=== PATIENT | female | born 1965 | race Two or more races ===

== ENCOUNTER 2021-04-11 12:58 | Emergency (ER) | payer OTHER, SELFPAY ==
[2021-04-11 14:09] VITALS: BP 155/87; PULSE 81; RESP 19; TEMP 36.1; BMI 32.8
--- NOTE | 2021-04-11 15:00 | ED.NECK ---
HPI - Neck Pain/Injury General Chief Complaint: Neck Pain/Injury Stated Complaint: neck pain Time Seen by Provider: 04/11/21 14:45 Source: patient Mode of arrival: ambulatory Limitations: no limitations History of Present Illness HPI Narrative: Patient is a 55-year-old female past medical history of diabetes, fibromyalgia, arthritis, and cervical spine fusion 5 years ago at [facility]. She presents emergency department today for evaluation of neck pain and stiffness with the onset of 3 days ago. Pain is constant to the posterior and right lateral neck and into her upper shoulders. She denies any precipitating injury. She took ibuprofen yesterday with relief from her pain, today however it is not helping. Denies fevers, chills, headache, vision changes, dizziness or lightheadedness, numbness or tingling of the arms, chest pain, palpitations, shortness of breath and deep breathing, nausea, vomiting. Denies any recent illness, sick exposure, or COVID-19 exposure. MD complaint: neck pain Onset (ago): day(s) Radiation: right lateral, right shoulder and upper back Severity: severe Severity scale (1-10): 8 Quality: spasming Duration: constant Relieving factors: none Exacerbating factors: movement of neck Context: unknown Associated symptoms: none Treatments prior to arrival: ibuprofen Related Data Previous Rx's Medication Instructions Recorded dicyclomine 20 mg tablet 20 mg PO QID #120 tab 10/09/20 fenofibrate nanocrystallized 145 145 mg PO DAILY #30 tab 11/03/20 mg tablet tizanidine 2 mg capsule 2 mg PO TID PRN 7 Days #14 cap 04/11/21 Allergies Allergy/AdvReac Type Severity Reaction Status Date / Time acetaminophen [From PERCOCET] Allergy Intermediate VOMITING Verified 04/11/21 14:46 oxycodone [From PERCOCET] Allergy Intermediate VOMITING Verified 04/11/21 14:46 trazodone [TRAZODONE] Allergy Unknown UNKNOWN, Verified 04/11/21 14:46 jaw locking Review of Systems Review of Systems: Constitutional: No weight loss, fever, chills, weakness or fatigue. HEENT: No visual loss, blurred vision, double vision or yellow sclera. No hearing loss, sneezing, congestion, runny nose or sore throat. Skin: No rash or itching. Cardiovascular: No chest pain, chest pressure or chest discomfort. No palpitations or pedal edema. Respiratory: No shortness of breath, cough or sputum production. Gastrointestinal: No anorexia, nausea, vomiting or diarrhea. No abdominal pain or blood in stool. Genitourinary: No burning micturition. No urinary frequency or incontinence. Neurologic: No headache, dizziness, syncope, unilateral weakness, ataxia, numbness or tingling in the extremities. No change in bowel or bladder control. Musculoskeletal:+ neck and shoulder pain. back pain, joint pain or stiffness. Hematologic: No bleeding or bruising. Lymphatics: No enlarged lymph nodes. Psychiatric:No depression or anxiety. Endocrine: No polyuria or polydipsia. [facility] Past Medical History Attestation statement: The following information was validated with the patient. Source: old records reviewed Medical History Arthritis Diabetes Fibromyalgia High cholesterol Surgical History H/O cervical spine surgery Hx of lumbosacral spine surgery Social History Social History Advance Directives: No Advance Directives Information Provided: No Patient : No Physical Exam Vital Signs: Vital Signs: Last Vital Signs Temp 97 F 04/11/21 14:09 Pulse 77 04/11/21 16:04 Resp 16 04/11/21 16:04 BP 116/69 04/11/21 16:04 Pulse Ox 98 04/11/21 16:04 BMI result Body Mass Index 32.8 Vital signs have been reviewed and appeared to be correct. Blood pressure elevated initially /87 likely due to pain, improved to 116/69.? Heart rate normal.? Respiration rate normal. Temperature normal.? Oxygen saturation normal. Appearance: Alert.?Oriented to person, place and time. No acute distress.?Normal affect. Eyes: Pupils equal, round and reactive to light.? ENT: Pharynx normal.?? Neck: Normal inspection.? Neck supple.??Active range of motion limited with rotation forward flexion posterior extension due to pain. Palpable tenderness to the right trapezius muscle, with increased muscle tone. CVS: Heart sounds normal. Normal heart rate and rhythm.? Pulses normal.?? Respiratory: No respiratory distress.? Lung sounds clear to auscultation bilaterally?? Abdomen: Soft and non-tender. Normoactive bowel sounds. No pulsatile mass.?? Skin: Skin warm and dry.? Normal skin color.? Normal skin turgor.?? Extremities: No lower extremity edema.? Full active range of motion to bilateral arms and shoulders Neuro: Bilateral arms strength 5-5, equal, no weakness, palpable radial pulses. Moves all extremities spontaneously. Sensation intact bilaterally. No focal neuro deficits. Course Course Course Narrative: Patient is a 55-year-old female being evaluated for neck pain. She is well appearing, nontoxic. Given she has had no precipitating under neck injury in more fall will defer radiographic imaging at this time. No recent infection, fevers, chills or meningismus to suggest meningitis. Physical exam was consistent with cervical and trapezius strain. As she is not driving herself home today, she will be treated with Toradol IM and Valium PO. Disposition pending results Reevaluation(s) Reevaluation #1: Patient reports improvement of her pain, currently is a 5/10 and has increased range of motion to the neck. She continues to be well-appearing. Her blood pressure has improved 116/69. Patient to be discharged home with the plan for NSAID, topical heat/cold therapy, gentle stretching exercise, and muscle relaxer. Discussed reasons to return to the emergency department, an outpatient follow-up with her primary care provider. Patient agrees plan of care. Time: 16:00 [facility] - Neck Pain/Injury Medical Records Attestation: I reviewed the patient's medical records. Discharge Plan Discharge Clinical Impression: Strain of neck muscle, Strain of cervical portion of right trapezius muscle Patient Disposition: Home, Self-Care Instructions: Cervical Strain (ED) Additional Instructions: Your pain is most likely due to a strain of the muscles in her neck and shoulder. May use ibuprofen as needed for pain, you can apply topical ice pack or heating pad, and should perform gentle stretching exercises of the neck shoulders and upper arms. In addition you had been given a new prescription for Tizanadine, this is a muscle relaxer, you should not drive or operate machinery while taking this medication, it may make you drowsy. Please follow-up with your primary care provider 1-3 days. In addition you may return to the emergency department for any new or worsening concerns or symptoms. Prescriptions: New tizanidine 2 mg capsule 2 mg PO TID PRN (Reason: muscle spasticity) 7 Days Qty: 14 RF: 0 No Action dicyclomine 20 mg tablet 20 mg PO QID Qty: 120 RF: 3 fenofibrate nanocrystallized 145 mg tablet 145 mg PO DAILY Qty: 30 RF: 3
[2021-04-11] MEDS: Ketorolac Tromethamine 30 MG/ML VIAL IM (15:13)
[2021-04-11] MEDS: diazePAM 2 MG TABLET PO (15:13)
[2021-04-11 16:04] VITALS: BP 116/69; PULSE 77; RESP 16; O2SAT 98
== END 2021-04-11 16:41 | disposition home or self-care (01) ==
PROVIDERS: Emergency Provider Internal Medicine; PCP Internal Medicine
DX: S16.1XXA Strain of muscle, fascia and tendon at neck level, initial encounter (principal); X58.XXXA Exposure to other specified factors, initial encounter; E11.9 Type 2 diabetes mellitus without complications; Y93.9 Activity, unspecified; Y92.9 Unspecified place or not applicable; Y99.9 Unspecified external cause status
CPT/HCPCS: 96372; 99284; J1885

== ENCOUNTER 2024-03-08 12:42 | Outpatient (AMB) | payer OTHER, SELFPAY ==
--- OUTSIDE RECORDS SUMMARY | 2024-03-08 12:44 | XMS_ITS | Data Portability ---
Author Organization [facility] Address [address] [place] [id number] Care Team Providers Care Security Guard Dispatcher Name Role Phone [facility] Referring Provider [phone] Assessment Encounter Date Assessment Date Assessment LastModified by Organization Details LastModified Time 08/15/2022 08/15/2022 As noted, we sameer e called to see this patient regarding concerns of sore throat. Evaluation in the field was performed by my field scout colleague, as noted above, I provided real-time direction and supervision for this visit. The evaluation revealed rapid strep +. Besides the throat, exam is reassuring except for tachycardia; ms lou did not take her atenolol today due to pain with swallowing. Exam otherwise reassuring in that she does not appear volume down; she was taking robust PO as recently as yesterday, only today has been difficult. Appears to be straightforward strep throat. Tachycardia raises some concern for early sepsis but hx of not taking atenolol and otherwise asymptomatic. Impression: acute strep pharyngitis Plan: 1. PCN V 500mg bid x 10 days sent to her pharmacy 2. encouraged salt gargles 3. toradol IM on site for acute pain 4. Given well appearance and vitals besides tachycardia, low concern for sepsis, but told to call us vs ER if she becomes lightheaded, is still unable to take PO, palpitations, or worsening condition. Disposition: We discussed the diagnostic uncertainty of home visits and the risk associated with this. In this case, the patient and I felt this to be an acceptable and reasonable amount of risk given the benefit of avoiding an ED visit. We discussed the need to seek care urgently/emergentl y in the setting of any new or worsening serious symptoms, especially as noted above. [email or web address] Not available 08/15/2022 16:21:01 Plan of Treatment Reminders Order Date Submit Date Provider Last Modified By Organization Details Last Modified Time Details Appointments None recorded. Lab None recorded. Referral None recorded. Procedures None recorded. Surgeries None recorded. Imaging None recorded. Medication Orders penicillin V potassium [address] [facility]armacy #[id number], [address] [facility], [place], [address], 3 11:55:38 Patient TargetsNo targets recorded. Patient InstructionsNo instructions recorded. Reason for Referral None Reported. Medical Equipment None Reported. Allergies Allergen ID Allergen Name Allergen Category Reaction Reaction Severity Criticality Documentation Date Start Date Code Code System Note Provider Name and Address Organization Details Recorded Time 8031 trazodone medicatio n Not available Not available Not available 01/17/2024 12094 RxNorm Not Available [facility] - production 4 03:41:30 Medications Name Sig Start Date Stop Date Status Note LastModified by Organization Details LastModified Time amoxicillin 500 mg capsule TAKE 1 CAPSULE BY MOUTH THREE TIMES A DAY UNTIL FINISHED active Not Available Not Available No t Available atorvastatin 40 mg tablet TAKE 1 TABLET BY MOUTH EVERY DAY active Not Available Not Available No t Available nabumetone 750 mg tablet TAKE 1 TABLET BY MOUTH EVERY DAY NEEDED FOR PAIN active Not Available Not Available No t Available tizanidine 4 mg tablet TAKE 1 TABLET BY MOUTH EVERY 8 HOURS NEEDED (NECK PAIN). active Not Available Not Available No t Available benzonatate 200 mg capsule TAKE ONE CAPSULE BY MOUTH THREE TIMES DAILY NEEDED FOR COUGH active Not Available Not Available No t Available penicillin V potassium 500 mg tablet TAKE 1 TABLET BY MOUTH TWICE A DAY DIRECTED FOR 10 DAYS active Not Available Not Available No t Available acetaminophen 500 mg tablet TAKE 1 TABLET BY MOUTH EVERY 4-6 NEEDED FOR FEVER OR PAIN active Not Available Not Available No t Available lorazepam 0.5 mg tablet TAKE 1 TABLET BY MOUTH EVERY MORNING NEEDED FOR ANXIETY active Not Available Not Available No t Available lorazepam 2 mg tablet TAKE 1 TABLET BY MOUTH EVERYDAY AT BEDTIME active Not Available Not Available No t Available omeprazole 20 mg capsule,delaye d release TAKE 1 CAPSULE BY MOUTH EVERY DAY active Not Available Not Available No t Available lorazepam 1 mg tablet TAKE 1 TABLET BY MOUTH EVERYDAY AT BEDTIME active Not Available Not Available No t Available atenolol 50 mg tablet TAKE 1 TABLET BY MOUTH EVERY DAY active Not Available Not Available No t Available duloxetine 60 mg capsule,delaye d release TAKE 1 CAPSULE BY MOUTH TWICE A DAY active Not Available Not Available No t Available Quick[employer] At-Home COVID-19 Test kit TEST DIRECTED TODAY active Not Available Not Available No t Available Vitals Date Recorded Respiratory rate Heart rate Oxygen saturation Oxygen saturation in Arterial blood by Pulse oximetry Body temperature Systolic blood pressure Diastolic blood pressure Provider Name and Address Organization Details Last Updated DateTime 3 18 /min 125 /min 96 % 96 % 99.9 [degF] 114 mm[Hg] 76 mm[Hg] Not Available [facility] - production 3 11:47:32 Social History None recorded. Functional Status None recorded. Mental Status None recorded. Family History Nothing Reported. Medical History No medical history recorded. Gynecological HistoryNo gynecological history recorded. Obstetrics History GPAL:G 0 P 0 0 0 0 Past Encounters Encounter ID Performer Location Encounter Start Date Encounter Closed Date Diagnosis/Indication Diagnosis SNOMED-CT Code Diagnosis ICD10 Code [id number] FABIAN DIAZ MD [facility] - [facility] [address] [place] [id number] 08/15/2022 11:47:27 08/16/2022 18:57:52 Acute pharyngitis 819398189 J02.9 Health Concerns Section Related Observation LastModified by Organization Detai ls LastModified Time None Recorded Concern Status LastModified by Organization Details LastModified Time None Recorded Advance Directives Directive None Recorded Payers Encounter Date Sequence Insurance Name Policy Number Policy Alfaro Covered Member ID Aflaro Member ID Guarantor Name 08/15/2022 1 [facility] - DOS ON OR AFTER 2022 - DUAL ELIGIBLE - HALF-WAY OPTIONS AND ONE CARE (MEDICARE REPLACEMENT/ADV ANTAGE - HMO) Christina Lou [id number] Christina Lou Notes Date Note Type Note Provider Name and Address Organization Details Recorded Time 08/15/2022 text/html [facility] Nursing Assessment: Reason For Request: congestion and fever Chief Complaints: Fever/Chills, Pain, Shortness of Breath/Dyspnea PMH: Diabetes, Hypertension Allergies: Trazodone Comments: Member calling in to place a referral, identified via /name. Member who is not feeling well, she feels feverish +chills, headache, body aches, sore throat, slight cough and sob. Denies n/v/d. Member would like to be evaluated. .................. .................. .................. .................. .................. .................. .................. ............... Waste Water Or Water Plant Operator Note From Lotus Ruggiero: Sent to evaluate pt c/o fever/chills, body aches, slight cough, sore throat, and HILL. Upon arrival, found pt seated in armchair in living room- pt appears to feel unwell. Pt is awake and alert, airway open and patent, breathing regular. In full sentences, pt states that yesterday she started feeling symptoms listed above. Today she has worsened. Pt endorses fever of 100.4 this AM, took tylenol and believes it's come down some. Obtained vitals, pt found to be tachycardic in 120's. Pt reports that due to pain upon swallowing, did not take her regular atenolol this AM. Pt reports fluid intake today due to discomfort, but has had one cup of tea so far today. Upon interview, pt admits that her son was diagnosed with strep x1 week ago and she had contact with him. Pt denies cp, sob, abd pain, n/v/d, drooling, inability to swallow, palpitations, or sinus congestion. +fever, +chills, +myalgia, +hill, +sore throat, +slight non productive cough. Skin hot, pink, dry. Throat does not appear red/no exudate appreciated but appears +swollen. Trachea midline, no JVD. Equal chest rise and fall, breath sounds are clear, equal, bilateral. Rapid covid and rapid flu are both negative. Pt + for strep A. Image of + test uploaded to [facility]. Advised pt to increase fluid intake as tolerated, to try taking teaspoon of honey q 3-4 hours and to regularly gargle with warm salt water, pt reports being very familiar with gargling with salt water. Also advised pt to continue with tylenol q6 prn. Consulted [facility] who will send script of PCN to pt's pharmacy and reiterated the symptomatic treatment with salt water. [facility] advised pt to take her atenolol anjali. [facility] orders 15mg of IM toradol, which was administered without incident. [facility] discussed red flags to be shared with pt to trigger ER visit. Relayed information to pt who verbalized understanding. There were no further questions or concerns at this time. .................. .................. .................. .................. .................. .................. .................. ............... Disposition: Fulfilled FABIAN DIAZ MD [address] [facility],[address], [place], [phone], [employer] 08/15/2022 16:21:19 OBGyn Episode No OBEpisode recorded.
[2024-03-08 13:01] VITALS: BMI 32.4
--- NOTE | 2024-03-08 13:01 | A.SPINEOV_ITS ---
Vital Signs 03/08/24 13:01 Height 5 ft Weight 166 lb BMI 32.4 Intake Visit Reasons: LBP Intake Note: Ms. Lou is here today c/o Low back pain. Supervisor Home Energy Consultant Required: No Allergies acetaminophen [From PERCOCET] Allergy (Intermediate, Verified 03/08/24 13:01) VOMITING oxycodone [From PERCOCET] Allergy (Intermediate, Verified 03/08/24 13:01) VOMITING trazodone [TRAZODONE] Allergy (Unknown, Verified 03/08/24 13:01) UNKNOWN, jaw locking Physical Exam Vital Signs: BMI result Body Mass Index 32.4 Assessment & Plan Assessment & Plan (1) Back pain: Code(s): M54.9 - Dorsalgia, unspecified Category: Medical Plan Mrs Lou came in for a 2nd opinion on her thoracic spine today. She is a patient known to Dr. Melgar at [facility]. She has had an extensive cervical fusion history, from what looks like C3-C6. Her last surgery was in 2021. Over the last 3-4 months she has developed a midthoracic pain which radiates around from her ribs out toward her chest. It can get aggravated with deep breathing. It is also aggravated with most activities. She takes nabumetone in Motrin to try to help. It does give her some relief. She tried physical therapy for awhile but that seemed to only make it worse. She was seen in Dr. Chin office and a thoracic MRI was ordered. This showed just mild degenerative changes. She is recommended to continue on with conservative treatment. She came in today to see us for a 2nd opinion. No myelopathic complaints. PMH: She is diabetic but her A1c is well controlled without medications, history of osteoarthritis, fibromyalgia, multiple fusions of the cervical spine, 3 surgeries in her lower back including an anterior lumbar interbody fusion. Carpal tunnel in both hands, rotator cuff right shoulder., hypertension, high cholesterol Social hx: She does not smoke, drink use any recreational drugs Medications: Atenolol, omeprazole, atorvastatin, lorazepam, trazodone, Topamax, Cymbalta Allergies: Percocet Physical exam: She is awake alert oriented no acute distress, she has full strength of bilateral upper and lower extremities, normal gait, reflexes 3+ and symmetric at the biceps triceps, patella and Achilles. There is no Guardado's sign. Imaging review: Thoracic MRI done at [facility] shows just very mild degenerative changes in the thoracic spine, no foraminal or central canal stenosis. Impression: 58-year-old female with midthoracic pain, she has a history of an anterior cervical fusion from C3-C6, the last in 2021. Her MRI is otherwise showing just mild changes and I am not sure how to explain her pain based on the imaging. I agree with that this is likely some kind of muscular phenomenon. It could be related to the affect of the fusion in her neck, causing her referred pain down into her upper thoracic and midthoracic areas. Could be causing muscular tightness due to the lack of range of motion in her neck. Nonetheless, there is nothing surgical on our imaging. She was recommended just to continue with conservative treatments. Thank you for allowing us to care for your patient. The total time spent with this visit with this patient was 45 minutes reviewing history, physical exam, thoracic imaging review, and implementation of treatment plan or further diagnostic testing Graeme Buckley MD,PhD [facility] Coding Level of Care Code New Pt Level 4 (41941) Diagnoses Back pain M54.9
== END 2024-03-08 14:17 | disposition home or self-care (01) ==
PROVIDERS: PCP Internal Medicine; Visit Provider Physician Assistant
DX: M54.9 Dorsalgia, unspecified (principal)
CPT/HCPCS: 99204

== ENCOUNTER → 2024-03-08 12:42 | Outpatient (BNVA) | payer OTHER, SELFPAY | PROVIDERS: PCP Internal Medicine; Visit Provider Physician Assistant | DX: M54.9 Dorsalgia, unspecified (principal) | CPT/HCPCS: 99202 ==

== ENCOUNTER 2024-03-24 09:38 | Emergency (ER) | payer OTHER, SELFPAY ==
--- NOTE | ~2024-03-24 | XR_ITS ---
CLINICAL HISTORY: cough 2 view chest x-ray. Comparison: CR - CHEST 2 VIEWS - 12/06/17 09:32 EDT CR - CHEST 2 VIEWS - 11/29/17 11:18 EDT Findings: Normal lung volumes. Lungs are clear. No pneumothorax or pleural effusion. Heart size normal. No passive venous congestion. No midline shift or tracheal deviation. No acute fracture. Post ACDF cervical vertebra. Impression: 1. No acute cardiopulmonary disease. This document has been electronically signed by: Kike Salvador MD on 03/24/2024 10:21:01
--- OUTSIDE RECORDS SUMMARY | 2024-03-24 09:41 | XMS_ITS | Data Portability ---
Author Organization [facility] [place] Address [address] [place] [phone] Care Team Providers Care Compliance Consultant Name Role Phone [facility] Referring Provider Assessment Encounter Date Assessment Date Assessment LastModified by Organization Details LastModified Time 08/15/2022 08/15/2022 As noted, we sameer e called to see this patient regarding concerns of sore throat. Evaluation in the field was performed by my power cleaner operator colleague, as noted above, I provided real-time [...] V potassium 500 mg tablet 2022 023 [facility]/Pharmacy #[id number], [address] [facility], [place], [address], 3 11:55:38 Patient TargetsNo targets recorded. Patient InstructionsNo instructions recorded. Reason for Referral None Reported. Medical Equipment None Reported. Allergies Allergen ID Allergen Name Allergen Category Reaction Reaction Severity Criticality Documentation Date Start Date Code Code System Note Provider Name and Address Organization Details Recorded Time 8031 trazodone medicatio n Not available Not available Not available 01/17/2024 67891 RxNorm Not Available [facility] - production 4 [...] Diagnosis/Indication Diagnosis SNOMED-CT Code Diagnosis ICD10 Code [id number] FABIAN DIAZ MD Main - [facility] [address] [place] [phone] 08/15/2022 11:47:27 08/16/2022 18:57:52 Acute pharyngitis [id number] J02.9 Health Concerns Section Related Observation LastModified by Organization Detai ls LastModified Time None Recorded Concern Status LastModified by Organization Details LastModified Time None Recorded Advance Directives Directive None Recorded Payers Encounter Date Sequence Insurance Name Policy Number Policy Alfaro Covered Member ID Alfaro Member ID Guarantor Name 08/15/2022 1 [facility] - DOS ON OR AFTER 2022 - DUAL ELIGIBLE - CUSTODIAL OPTIONS AND ONE CARE (MEDICARE REPLACEMENT/ADV ANTAGE - HMO) Christina Lou [id number] Christina Lou Notes Date Note Type Note [...] .................. .................. .................. .................. .................. .................. ............... Water Quality Tester Note From Lotus Ruggiero: Sent to evaluate [...] to continue with tylenol q6 prn. Consulted [facility] who will send script of PCN to pt's pharmacy and reiterated the symptomatic treatment with salt water. [facility] advised pt to take her atenolol anjali. [facility] orders 15mg of IM toradol, which was administered without incident. [facility] discussed red flags to be shared with pt to trigger ER visit. Relayed information to pt who verbalized understanding. There were no further questions or concerns at this time. .................. .................. .................. .................. .................. .................. .................. ............... Disposition: Fulfilled FABIAN DIAZ MD [address] [facility],[address], [place], [address], [employer] 08/15/2022 16:21:19 OBGyn Episode No OBEpisode recorded.
[2024-03-24 09:45] VITALS: BP 114/83; PULSE 75; RESP 18; TEMP 36.6; O2SAT 98; BMI 32.4
[2024-03-24 10:43] LABS: IDNOW Serial# 08D9AD1C; Strep A Nucleic Acid Negative (Negative)
[2024-03-24] MEDS: Acetaminophen 325 MG TABLET 975 MG PO (11:07)
--- NOTE | 2024-03-24 11:09 | ED_ITS ---
HPI - URI/Sore Throat General Chief Complaint: Upper Respiratory Symptoms Stated Complaint: cough Time Seen by Provider: 03/24/24 10:35 Source: patient and RN notes reviewed Mode of arrival: ambulatory Limitations: no limitations History of Present Illness ED Provider: Ada Pineda PA-C HPI Narrative: This is a 58-year-old female, with type 2 diabetes, fibromyalgia, arthritis, C- spine fusion, who presents emergency department with ongoing productive cough, subjective fevers, sore throat, congestion body aches for the last week. Patient does report chest wall pain only with coughing. She denies any shortness for breath. She has been taking pxuo-dlk-qulsqom cold medications without any relief. Denies taking any medications today. She denies any abdominal pain, nausea, vomiting or diarrhea. No urinary symptoms. Denies any known sick contacts. She is a nonsmoker. No other complaints or concerns at this time. MD elicited complaint: fever (Subjective), cough, sore throat and nasal congestion Severity: moderate Able to tolerate fluids by mouth: Yes Exacerbating factors: nothing Relieving factors: OTC cold medicine Associated symptoms: fever (Subjective), nasal congestion, sore throat and cough Treatments prior to arrival: none Related Data Previous Rx's ?Medication ?Instructions ?Recorded dicyclomine 20 mg tablet 20 mg PO QID #120 tabs 10/09/20 fenofibrate nanocrystallized 145 145 mg PO DAILY #30 tabs 11/03/20 mg tablet tizanidine 2 mg capsule 2 mg PO TID PRN muscle spasticity 04/11/21 7 days #14 caps acetaminophen 500 mg tablet 1,000 mg (2 x 500 mg) PO Q8H PRN 03/24/24 (Tylenol Extra Strength) fever or pain #30 tabs benzonatate 100 mg capsule 100 mg PO TID PRN cough #14 caps 03/24/24 ibuprofen 600 mg tablet 600 mg PO Q6H PRN pain or fever 03/24/24 #30 tabs Allergies Allergy/AdvReac Type Severity Reaction Status Date / Time acetaminophen [From PERCOCET] Allergy Intermediate VOMITING Verified 03/24/24 09:46 oxycodone [From PERCOCET] Allergy Intermediate VOMITING Verified 03/24/24 09:46 trazodone [TRAZODONE] Allergy Unknown UNKNOWN, Verified 03/24/24 09:46 jaw locking Review of Systems Review of Systems: Yes all other systems are reviewed and are negative Constitutional: Constitutional: Reports as per HPI [facility] Past Medical History Medical History Arthritis Diabetes Fibromyalgia High cholesterol Surgical History H/O cervical spine surgery Hx of lumbosacral spine surgery Social History Social History Advance Directives: No Advance Directives Information Provided: No Do you have a plan to hurt others: No Plan Physical Exam Vital Signs: Vital Signs: Last Vital Signs Temp 97.9 F 03/24/24 09:45 Pulse 75 03/24/24 09:45 Resp 18 03/24/24 09:45 BP 114/83 03/24/24 09:45 Pulse Ox 98 03/24/24 09:45 O2 Del Method Room Air 03/24/24 09:45 BMI result Body Mass Index 32.4 Const: General: cooperative, comfortable and no acute distress Orientation/consciousness: patient oriented x3 Limitations: no limitations HEENT: Head: Yes normal to inspection, Yes normocephalic and Yes atraumatic Ears: hearing grossly normal bilaterally and TM's normal bilaterally General nose exam: Normal external nose present Face and sinus: Yes normal facial exam Mouth: Normal oral and palatal mucosa present, oropharynx normal and moist mucous membranes Throat: Yes posterior oropharynx normal Eyes: General: appearance normal, both eyes and all related structures Eyelids: Yes eyelids normal Conjunctivae: conjunctivae normal Sclerae: sclerae normal Pupils: Equal, round and reactive pupils present EOM: EOMs intact bilaterally Neck: Neck: Yes normal visual inspection, Yes full ROM and Yes no lymphadenopathy Lymphatic: no lymphadenopathy noted Chest: Chest palpation & inspection: normal inspection of the chest Resp: Effort & Inspection: normal respiratory effort and able to speak in complete sentences Auscultation: clear to auscultation bilaterally, no crackles, no rales, no rhonchi and no wheezes Cardio: Rate: regular rate Rhythm: regular rhythm Heart sounds: S1 normal heart sound present and S2 normal heart sound present GI: Inspection: Yes normal to inspection Skin: General skin exam: no rashes or lesions noted Trauma: no lacerations or abrasions Wounds: no wounds Neuro: General: patient oriented x3 and moves all extremities Cranial nerves: Yes Equal, round and reactive pupils present Extrem: General: Yes normal to inspection Right upper extremity: normal to inspection Left upper extremity: normal to inspection Right lower extremity: normal to inspection Left lower extremity: normal to inspection Course Reevaluation(s) Reevaluation #1: Chest x-ray negative. Viral swabs negative. Patient's symptoms likely viral in nature. Discussed this finding with patient. She has been sick for 5 days therefore will treat conservatively with ibuprofen, Tylenol, and Tessalon Perles. She will follow-up with the primary care physician. Vital signs stable. She is feeling well, given strict return precautions, patient stable for discharge. Time: 12:28 Medications Administered Discontinued Medications Generic Name Dose Route Start Last Admin Trade Name Freq PRN Reason Stop Dose Admin Acetaminophen 975 mg 03/24/24 10:57 03/24/24 11:07 Acetaminophen 325 Mg Tablet PO 03/24/24 10:58 975 mg ONCE ONE Administration Medical Decision Making Medical Decision Making [facility] Narrative: This is a 58-year-old female, with a history of type 2 diabetes, who presents emergency department with complaints of congestion, sore throat, productive cough, chest wall pain, and congestion for the last week. On arrival, vital signs within normal limits. She is speaking in full sentences under no acute distress. Lungs are clear to auscultation bilaterally. Normal physical examination. X-ray as well as viral swabs were collected. Differential diagnoses include viral URI, flu, RSV, COVID, strep, pneumonia. Will medicate patient with Tylenol 1 g p.o. Differential Diagnosis Differential Diagnoses: The differential diagnosis associated with the presentation includes See above Lab Data [facility] Lab Attestation statement: I reviewed the patient's lab results. Viral swabs Labs: Lab Results 03/24/24 Range/Units 10:26 Influenza Type A (PCR) NEGATIVE (Negative) Influenza Type B (PCR) NEGATIVE (Negative) RSV RNA Qual (PCR) NEGATIVE (Negative) SARS-CoV-2 RNA (RT-PCR) NEGATIVE (Negative) S. pyogenes GrpA AKI Negative (Negative) Radiology Impression Discussion of test interpretation with radiology: I have reviewed the radiologist's reading. Radiologist Impression: Comparison: CR - CHEST 2 VIEWS - 12/06/17 09:32 EDT CR - CHEST 2 VIEWS - 11/29/17 11:18 EDT Findings: Normal lung volumes. Lungs are clear. No pneumothorax or pleural effusion. Heart size normal. No passive venous congestion. No midline shift or tracheal deviation. No acute fracture. Post ACDF cervical vertebra. Impression: 1. No acute cardiopulmonary disease. This document has been electronically signed by: Kike Salvador MD on 03/24/2024 10:21:01 Dictated By: Kike Salvador MD Discharge Plan Discharge Clinical Impression: Upper respiratory infection Patient Disposition: Home, Self-Care Instructions: Upper Respiratory Infection (ED) Additional Instructions: You were seen in the emergency department due to cough. Your workup today was reassuring. You likely have a virus causing you to have the symptoms. You tested negative for COVID, flu, RSV, and strep throat. Your chest x-ray does not show a pneumonia. Please continue drinking plenty of fluids get plenty of rest. Alternate between ibuprofen and Tylenol as needed for pain and fevers. Take Tessalon as needed for cough. Follow-up with your primary care physician next week to ensure that your symptoms are improving. If your symptoms worsened,Follow up with your primary care provider. Return to the emergency department immediately?if your symptoms?were to worsen or if you were to develop any shortness of breath, difficulty breathing, chest pain, dizziness, lightheadedness, back pain, abdominal pain, fever, chills, or any other symptoms. Prescriptions: New benzonatate 100 mg capsule 100 mg PO TID PRN (Reason: cough) Qty: 14 0RF ibuprofen 600 mg tablet 600 mg PO Q6H PRN (Reason: pain or fever) Qty: 30 0RF acetaminophen [Tylenol Extra Strength] 500 mg tablet 1,000 mg PO Q8H PRN (Reason: fever or pain) Qty: 30 0RF No Action dicyclomine 20 mg tablet 20 mg PO QID Qty: 120 3RF fenofibrate nanocrystallized 145 mg tablet 145 mg PO DAILY Qty: 30 3RF tizanidine 2 mg capsule 2 mg PO TID PRN (Reason: muscle spasticity) 7 Days Qty: 14 0RF Print Language: Greek
[2024-03-24 11:19] LABS: Influenza A PCR NEGATIVE (Negative); Influenza B PCR NEGATIVE (Negative); Resp Syncy Virus RNA Qual PCR NEGATIVE (Negative); SARS COV2 PCR INHOUSE NEGATIVE (Negative)
[2024-03-24 13:01] VITALS: BP 114/83; PULSE 75; RESP 18; TEMP 36.6; O2SAT 98
== END 2024-03-24 13:02 | disposition home or self-care (01) ==
PROVIDERS: Emergency Provider Emergency Medicine
DX: J06.9 Acute upper respiratory infection, unspecified (principal); R05.9 Cough, unspecified; Z03.818 Encounter for observation for suspected exposure to other biological agents ruled out
CPT/HCPCS: 0241U; 71046; 87651; 99283

== ENCOUNTER → 2024-03-24 10:05 | Outpatient (BNV) | payer OTHER, SELFPAY | PROVIDERS: Emergency Provider Emergency Medicine; Visit Provider Radiology Diagnostic Radiology | DX: R05.9 Cough, unspecified (principal) | CPT/HCPCS: 71046 ==

== ENCOUNTER 2024-08-17 19:14 | Emergency (ER) | payer OTHER, SELFPAY ==
--- NOTE | ~2024-08-17 | CT_ITS ---
CLINICAL HISTORY: posterior neck pain CT cervical spine without contrast Comparison: None Findings: Straightening of the cervical lordosis. Osteopenia. Multilevel spondylosis with osteophytosis, uncovertebral hypertrophy, facet arthropathy and degenerative disc disease. Anterior cervical discectomy and fusion changes noted at C3-C6 with bony fusion. Diffuse spinal canal narrowing, for example moderate at C5-C6 with severe bilateral foraminal stenoses, left worse than right. Minimal superior endplate height loss at C7, chronic appearing. No acute fracture. No cervical fluid collections or masses. No consolidation or effusion at the lung apices. IMPRESSION: No acute findings. Additional findings as described. This document has been electronically signed by: Sean Morris MD on 08/17/2024 20:26:37
--- NOTE | ~2024-08-17 | CT_ITS ---
CLINICAL HISTORY: posterior headache CT head without contrast Comparison: None Findings: Scattered subcortical and periventricular hypoattenuation, likely in keeping with chronic small vessel ischemic disease. Parenchymal volume loss with compensatory prominence of the ventricles and CSF spaces. No acute territorial infarction, intracranial hemorrhage, midline shift or hydrocephalus. Empty sella is demonstrated, nonspecific. There is no sinus or mastoid fluid. The orbits are within normal limits. There is no acute fracture. IMPRESSION: 1. No acute intracranial abnormality. 2. Additional findings as described. This document has been electronically signed by: Sean Morris MD on 08/17/2024 20:32:18
[2024-08-17 19:16] VITALS: BP 120/73; PULSE 76; RESP 18; TEMP 36.6; O2SAT 98; BMI 30.9
--- NOTE | 2024-08-17 19:23 | ED.GENADULT ---
HPI - General Adult General Chief complaint: Headache Stated complaint: headache/lower neck pain Time Seen by Provider: 08/17/24 20:31 Source: patient and old records reviewed Mode of arrival: ambulatory Limitations: no limitations History of Present Illness ED Provider: FÁTIMA INGRAM narrative: 58 yo female with PMH of DM, HTN, HLD, migraines not on thinners who has had posterior headaches and neck pains for 1 month. No fevers, no trauma, no thinners. No associated n/v/d. She states it does not respond to motrin. She is under a lot of stress at home. She states this has been stronger and longer than a migraine MD complaint: migraines Onset (ago): month(s) (1) Location: head Radiation: neck Severity: moderate Quality: aching Pain Consistency: constant Relieving factors: none Exacerbating factors: movement Associated symptoms: denies other symptoms Treatments prior to arrival: NSAID Related Data Previous Rx's ?Medication ?Instructions ?Recorded dicyclomine 20 mg tablet 20 mg PO QID #120 tabs 10/09/20 fenofibrate nanocrystallized 145 145 mg PO DAILY #30 tabs 11/03/20 mg tablet tizanidine 2 mg capsule 2 mg PO TID PRN muscle spasticity 04/11/21 7 days #14 caps acetaminophen 500 mg tablet 1,000 mg (2 x 500 mg) PO Q8H PRN 03/24/24 (Tylenol Extra Strength) fever or pain #30 tabs benzonatate 100 mg capsule 100 mg PO TID PRN cough #14 caps 03/24/24 ibuprofen 600 mg tablet 600 mg PO Q6H PRN pain or fever 03/24/24 #30 tabs [id number]-ewjyawmlodqjo-nbvbjbaw 1 cap PO Q8H PRN pain #14 caps 08/17/24 50 mg-300 mg-40 mg capsule (Fioricet) cyclobenzaprine 10 mg tablet 10 mg PO TID PRN muscle spasm #20 08/17/24 tabs Allergies Allergy/AdvReac Type Severity Reaction Status Date / Time acetaminophen [From PERCOCET] Allergy Intermediate VOMITING Verified 08/17/24 19:18 oxycodone [From PERCOCET] Allergy Intermediate VOMITING Verified 08/17/24 19:18 trazodone [TRAZODONE] Allergy Unknown UNKNOWN, Verified 08/17/24 19:18 jaw locking Review of Systems Review of Systems: Constitutional : No Fever, No Chills, No Fatigue ENT/Mouth : No sore throat, No Rhinorrhea Eyes: No Eye Pain, No Swelling, No Redness Cardiovascular : No Chest Pain, No SOB, No Dyspnea on Exertion Respiratory : No Cough, No Sputum Gastrointestinal : No Nausea, No Vomiting, No Diarrhea, No abdominal Pain Genitourinary : No Dysuria, No Urinary Frequency, No Hematuria, Musculoskeletal : No joint pain, No Myalgias, No Joint Swelling, pos neck pain Skin : No Skin Lesions, No rash Neuro : No Weakness, No Numbness, No Dizziness, positive Headache Psych : No Anxiety/Panic, No Depression All other systems reviewed and are negative [facility] Past Medical History Attestation statement: The following information was validated with the patient. Source: old records reviewed Medical History Fibromyalgia High cholesterol Diabetes Arthritis Surgical History Hx of lumbosacral spine surgery H/O cervical spine surgery Social History Social History Use of substances other than those prescribed or required for medical reasons: No Advance Directives: No Advance Directives Information Provided: No Do you have a plan to hurt others: No Plan Physical Exam ED Vital Signs: Vital Signs - 24 hr 08/17/24 19:16 08/17/24 20:27 Temperature 97.9 F 98.2 F Pulse Rate 76 78 Respiratory Rate 18 16 Blood Pressure 120/73 124/74 Pulse Oximetry 98 97 Oxygen Delivery Method Room Air Room Air BMI result Body Mass Index 30.9 Appearance: Alert. Oriented X3. No acute distress. Eyes: Pupils equal, round and reactive to light. ENT: Pharynx normal. normal TMs, no temporal ttp Neck: Normal inspection. Neck supple. CVS: Normal heart rate and rhythm. Pulses normal. Respiratory: No respiratory distress. Breath sounds normal. Abdomen: Soft and nontender. Skin: Skin warm and dry. Normal skin color. Normal skin turgor. Extremities: No lower extremity edema. No calf ttp Neuro: Oriented X 3. No motor deficit. No sensory deficit. CN2-12 intact Course Course Course Narrative: RMHarry; 58-year-old female history of migraine presents to ED for right posterior head and neck pain for 1 month that worsened in the past 3 days. Patient states pain on range of motion. Patient denies any photophobia, nausea, vomiting, blurry vision, slurred speech, facial droop or paralysis of extremities. NIH score is 0. Imaging labs ordered Medications Administered Discontinued Medications Generic Name Dose Route Start Last Admin Trade Name Arely PRN Reason Stop Dose Admin Acetaminophen/Butalbital/Caffeine 1 tab 08/17/24 20:51 08/17/24 21:06 Butalb/Acetamin/Caff 50/325/40 Tablet PO 08/17/24 20:52 1 tab ONCE ONE Administration Cyclobenzaprine HCl 10 mg 08/17/24 20:51 08/17/24 21:06 Cyclobenzaprine Hcl 10 Mg Tablet PO 08/17/24 20:52 10 mg ONCE ONE Administration Medical Decision Making Medical Decision Making [facility] Narrative: 58 yo female with PMH of DM, HTN, HLD, migraines not on thinners who comes in with 1 month of headache but no associated neuro symptoms, no trauma and no fevers to suggest [facility] infection. She has no neuro deficitis. At this time will obtain labs, CT scan for mass and reassess. Differential Diagnosis Differential Diagnoses: The differential diagnosis associated with the presentation includes tension headache, migraine Admission/Observation Consideration of admission/observation: Escalation of care including admission/observation considered feels better, stable for DC Lab Data [facility] Lab Attestation statement: I reviewed the patient's lab results. 08/17/24 19:46 08/17/24 19:46 Labs: Lab Results 08/17/24 Range/Units 19:46 WBC 8.7 (4.8-10.8) X10*3/uL RBC 3.82 L (4.20-5.50) X10*6/uL Hgb 12.1 (12.0-16.0) g/dl Hct 34.8 L (37.0-47.0) % MCV 91.1 (80.0-98.0) fL MCH 31.7 (27.0-33.0) pg MCHC 34.8 (31.0-35.0) g/dl RDW 12.4 (11.0-16.0) % Plt Count 246 (160-400) X10*3/uL MPV 10.1 (9.4-12.3) fL Immature Gran % (Auto) 0.3 (0.0-0.4) % Neut % (Auto) 58.3 (45-73) % Lymph % (Auto) 30.9 (20-40) % [place] % (Auto) 7.2 (2-11) % Eos % (Auto) 2.7 (0-4) % Baso % (Auto) 0.6 (0-2) % Lymph # (Auto) 2.7 (1.2-4.9) X10*3/uL [place] # (Auto) 0.6 (0.1-1.2) X10*3/uL Eos # (Auto) 0.2 (0.0-0.4) X10*3/uL Baso # (Auto) 0.1 (0.0-0.2) X10*3/uL Abs Immat Gran (auto) 0.03 (0.00-0.03) X10*3/uL Absolute Neuts (auto) 5.1 (2.0-8.3) x10*3/uL Absolute Nucleated RBC 0.000 (0.0-0.012) X10*3/uL Nucleated RBC % (auto) 0.0 (0.0-0.2) /100WBC Sodium 144 (135-145) mmol/L Potassium 4.0 (3.3-5.1) mmol/L Chloride 112 H (96-108) mmol/L Carbon Dioxide 23 (22-29) mmol/L Anion Gap 13 (12-20) BUN 16 (9-16) mg/dL Creatinine 0.76 (0.5-1.4) mg/dL Estim Creat Clear Calc 70.4 Estimated GFR > 60 Random Glucose 156 H (60-115) mg/dL Calcium 9.2 (8.4-10.2) mg/dL Total Bilirubin 0.3 (0.0-1.0) mg/dL AST 21 (5-31) U/L ALT 22 (0-31) U/L Alkaline Phosphatase 80 (39-117) U/L Total Protein 7.5 (6.5-8.0) g/dL Albumin 4.6 (3.5-5.0) g/dL Independent Interpretation I performed an independent interpretation of an: CT Scan (no ICH) Radiology Impression Discussion of test interpretation with radiology: I have reviewed the radiologist's reading. External Record Review External record reviewed: Outpatient record Prescription Management I considered prescription management with: Pain Medication Discharge Plan Discharge Clinical Impression: Tension headache Patient Disposition: Home, Self-Care Instructions: Tension Headache (ED) Additional Instructions: labs reassuring CT scan no mass rest and stay hydrated - return for worsening symptoms or concerns, fevers or any other concerns. Prescriptions: New cyclobenzaprine 10 mg tablet 10 mg PO TID PRN (Reason: muscle spasm) Qty: 20 0RF [id number]-uajjkaybgpanf-gblo [Fioricet] 50-300-40 mg capsule 1 cap PO Q8H PRN (Reason: pain) Qty: 14 0RF No Action dicyclomine 20 mg tablet 20 mg PO QID Qty: 120 3RF fenofibrate nanocrystallized 145 mg tablet 145 mg PO DAILY Qty: 30 3RF tizanidine 2 mg capsule 2 mg PO TID PRN (Reason: muscle spasticity) 7 Days Qty: 14 0RF benzonatate 100 mg capsule 100 mg PO TID PRN (Reason: cough) Qty: 14 0RF ibuprofen 600 mg tablet 600 mg PO Q6H PRN (Reason: pain or fever) Qty: 30 0RF acetaminophen [Tylenol Extra Strength] 500 mg tablet 1,000 mg PO Q8H PRN (Reason: fever or pain) Qty: 30 0RF Interventions: ED Discharge Assessment Last Done: 08/17/24 21:41 Discharge Date/Time: 08/17/24 21:43 Print Language: Wallisian
[2024-08-17 19:51] LABS: MANUAL DIFF FLAG NO
[2024-08-17 19:53] LABS: Basophils Absolute Auto 0.1 X10*3/uL (0.0-0.2); Basophils Percent Auto 0.6 % (0-2); Eosinophils Absolute Auto 0.2 X10*3/uL (0.0-0.4); Eosinophils Percent Auto 2.7 % (0-4); Hematocrit 34.8 % (37.0-47.0); Hemoglobin 12.1 g/dl (12.0-16.0); Imm Gran Abs Auto 0.03 X10*3/uL (0.00-0.03); Imm Gran Pct Auto 0.3 % (0.0-0.4); Lymphocytes Absolute Auto 2.7 X10*3/uL (1.2-4.9); Lymphocytes Percent Auto 30.9 % (20-40); Mean Corpuscular HGB Conc 34.8 g/dl (31.0-35.0); Mean Corpuscular Hemoglobin 31.7 pg (27.0-33.0); Mean Corpuscular Volume 91.1 fL (80.0-98.0); Mean Platelet Volume 10.1 fL (9.4-12.3); Monocytes Absolute Auto 0.6 X10*3/uL (0.1-1.2); Monocytes Percent Auto 7.2 % (2-11); Neutrophils Absolute Auto 5.1 x10*3/uL (2.0-8.3); Neutrophils Percent Auto 58.3 % (45-73); Platelet Count 246 X10*3/uL (160-400); Red Blood Count 3.82 X10*6/uL (4.20-5.50); Red Cell Distribution Width 12.4 % (11.0-16.0); White Blood Count 8.7 X10*3/uL (4.8-10.8)
--- NOTE | 2024-08-17 19:57 | PC.NURSE ---
Pt appeared to be having absent seizure, unresponsive, moving head and blinking eyes but not answering questions. 2.5mg IV diazepam ordered and administered.
[2024-08-17 20:07] LABS: Alanine Aminotransferase 22 U/L (0-31); Albumin Level 4.6 g/dL (3.5-5.0); Alkaline Phosphatase 80 U/L (39-117); Anion Gap 13 (12-20); Aspartate Amino Transferase 21 U/L (5-31); Bilirubin Total 0.3 mg/dL (0.0-1.0); Blood Urea Nitrogen 16 mg/dL (9-16); Calcium 9.2 mg/dL (8.4-10.2); Carbon Dioxide 23 mmol/L (22-29); Chloride 112 mmol/L (96-108); Creatinine Clr Calc Pharmacy 70.4; Estimated Glomerular Filt Rate > 60; Glucose Random 156 mg/dL (60-115); Sodium 144 mmol/L (135-145); Total Protein 7.5 g/dL (6.5-8.0)
[2024-08-17 20:27] VITALS: BP 124/74; PULSE 78; RESP 16; TEMP 36.8; O2SAT 97
[2024-08-17] MEDS: Butalb/Acetamin/Caff 50/325/40 TABLET 1 TAB PO (21:06)
[2024-08-17] MEDS: Cyclobenzaprine HCl 10 MG TABLET PO (21:06)
[2024-08-17 21:41] VITALS: BP 124/74; PULSE 78; RESP 16; TEMP 36.8; O2SAT 97
== END 2024-08-17 21:43 | disposition home or self-care (01) ==
PROVIDERS: Physician Assistant; Emergency Provider Emergency Medicine; PCP Internal Medicine
DX: G44.209 Tension-type headache, unspecified, not intractable (principal); E11.9 Type 2 diabetes mellitus without complications; I10 Essential (primary) hypertension; E78.5 Hyperlipidemia, unspecified
CPT/HCPCS: 36415; 70450; 72125; 80053; 85025; 99284

== ENCOUNTER → 2024-08-17 19:20 | Outpatient (BNV) | payer OTHER, SELFPAY | PROVIDERS: Emergency Provider Emergency Medicine; PCP Internal Medicine; Visit Provider Radiology Diagnostic Radiology | DX: M54.2 Cervicalgia (principal); R51.9 Headache, unspecified | CPT/HCPCS: 70450; 72125 ==

== ENCOUNTER 2024-08-21 08:58 | Outpatient (AMB) | payer OTHER, SELFPAY ==
[2024-08-21 09:08] VITALS: BP 110/72; BMI 30.7
--- NOTE | 2024-08-21 09:08 | MHC.PC.OV ---
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: No Accompanied by: Self / Same As Patient Allergies acetaminophen [From PERCOCET] Allergy (Intermediate, Verified 08/21/24 09:10) VOMITING oxycodone [From PERCOCET] Allergy (Intermediate, Verified 08/21/24 09:10) VOMITING trazodone [TRAZODONE] Allergy (Unknown, Verified 08/21/24 09:10) UNKNOWN, jaw locking Medication List - Last Reconciled 08/21/24 by Sarahi Lucio MD atenolol 50 mg PO DAILY atorvastatin 40 mg PO DAILY buspirone 7.5 mg PO BID duloxetine (Cymbalta) 60 mg PO BID ibuprofen 600 mg PO Q6H PRN lorazepam 1 mg PO QAM lorazepam 2 mg PO BEDTIME omeprazole 20 mg PO DAILY topiramate 100 mg PO BID trazodone 150 mg PO BEDTIME Tobacco use date assessed: 08/21/24 Dental Screening Dental Screen Date: 08/21/24 Did you have a dental visit in the last 12 months?: Yes Did you have a dental problem in the last 6 months where you did not have access to dental care?: No Was dental information given to patient?: Patient has dentist HPI HPI Comments History of Present Illness Details The patient is a 58-year-old female presenting with a complex medical history requiring medication management and assessment of multiple chronic conditions. Essential hypertension is managed with atenolol, while atorvastatin is prescribed for hyperlipidemia. Her anxiety and fibromyalgia are addressed with buspirone and duloxetine, respectively, supplemented by lorazepam at night for sleep. She reports intermittent ibuprofen usage for pain symptoms. She complains of hair loss and I will refer her to Dermatology. Complains of chronic neck pain and has seen neurosurgeon which does not recommend surgical intervention as of now. Has mild major recurrent depression, anxiety and insomnia follow by Psychiatry. Has impaired glucose tolerance but denies any polyuria, polydipsia or unintentional weight loss. Has goiter. She has had extensive surgical history with multiple spinal surgeries and bilateral carpal tunnel release. Previous gastrointestinal surgery includes a laparoscopic cholecystectomy. A recent colonoscopy and endoscopy were completed without noted complications. The patient experiences persistent neck pain, occasionally exacerbated by past anesthesia incidents, which resulted in severe rigidity. Her recent laboratory data indicated elevated random glucose, prompting a recommendation for ongoing monitoring. [facility] Medical History (Updated 08/21/24 @ 09:45 by Sarahi Lucio MD) Fibromyalgia High cholesterol Arthritis Surgical History (Updated 08/21/24 @ 09:28 by Sarahi Lucio MD) History of total abdominal hysterectomy History of hemicolectomy Hx laparoscopic cholecystectomy History of carpal tunnel release of both wrists H/O rotator cuff surgery Hx of lumbosacral spine surgery H/O cervical spine surgery Family History Mother Diabetes Hypertension Osteoporosis Father Dementia Emphysema lung Family/Other Mental health disorder Social History Housing: Apartment Alcohol intake: never Patient Tobacco Use Status: Never used Tobacco e-Cigarette/Vaping Use: Never Used Second Hand Smoke Exposure: No service: No Current occupational status: disabled Cognitive needs: Yes Hearing needs: No Vision needs: Yes Questionnaire PHQ-9 Over the last 2 weeks, how often have you been bothered by any of the following problems? 1. Little interest or pleasure in doing things: several days 2. Feeling down, depressed, or hopeless: several days 3. Trouble falling or staying asleep, or sleeping too much: more than half the days 4. Feeling tired or having little energy: several days 5. Poor appetite or overeating: several days 6. Feeling bad about yourself - or that you are a failure or have let yourself or your family down: several days 7. Trouble concentrating on things, such as reading the newspaper or watching television: several days 8. Moving or speaking so slowly that other people could have noticed. Or the opposite - being so fidgety or restless that you have been moving around a lot more than usual: several days 9. Thoughts that you would be better off or of hurting yourself in some way: not at all Total score: 9 Depression Screening Interpretation: Positive Depression Screening Follow-up: Existing condition and Follow-up Visit Requested Depression Screening Done: Yes 24811 - PHQ-9 Billing: Yes Source: Developed by Drs. Dmitry Lynn, Rivka Urrutia, Lupillo Gutierrez and colleagues, with an educational raine from [employer]. Thrive Questionnaire Date Thrive assessed: 08/15/24 I am a: Patient What is your living situation today?: I have a steady place to live Within the past 12 months, did the food you bought not last and you didn't have the money to get more?: Never true Within the past 12 months, did you worry whether your food would run out before you got money to buy more?: Never true Do you have trouble paying for medicines?: No Do you have trouble getting transportation to medical appointments?: No Do you have trouble paying your heating and electricity bill?: No Do you have trouble taking care of your child, family member or friend?: No Do you have trouble with day-to-day activities such as bathing, preparing meals, shopping, managing finances, etc.?: Yes Are you currently unemployed and looking for a job?: No Are you interested in more education?: No Please select the resources that you would like help with: None Currently or been in a relationship where the following occur: No concerns reported THRIVE Score: 0 AUDIT C Alcohol Use Questionnaire (AUDIT-C) 1. How often do you have a drink containing alcohol?: Never Total Score: 0 Score Reviewed/Action Taken: No RACHELLE-7 AMB Questionnaire RACHELLE-7 Date RACHELLE - 7 assessed: 08/21/24 Feeling nervous, anxious, or on edge: 2 = More than half the days Not being able to stop or control worryin = More than half the days Worrying too much about different things: 2 = More than half the days Trouble relaxin = More than half the days Being so restless that it is hard to sit still: 2 = More than half the days Becoming easily annoyed or irritable: 1 = Several days Feeling afraid as if something awful might happen: 0 = Not at all Total RACHELLE-7 score (0-4 normal; 5-9 mild; 10-14 moderate; 15-21 severe): 11 Source: Developed by Drs. Dmitry Lynn, Rivka Urrutia, Lupillo Gtuierrez and colleagues, with an educational raine from [employer]. RACHELLE-7 Assessment Billing RACHELLE-7 Assessment Tool: RACHELLE-7 Assessment 48114 Review of Systems Const All systems reviewed & are unremarkable except as noted in HPI and below Card Denies chest pain at rest, Denies chest pain with activity, Denies edema, Denies irregular heart rhythm, Denies claudication, Denies dyspnea, Denies dyspnea on exertion, Denies orthopnea, Denies paroxysmal nocturnal dyspnea and Denies slow heart rate Resp Denies cough, Denies dyspnea and Denies dyspnea on exertion GI Denies abdominal pain, Denies change in bowel habits, Denies excessive flatus, Denies nausea and Denies vomiting Denies urinary incontinence, Denies urinary hesitancy and Denies urinary urgency Musc Denies abnormal gait, Denies atrophy, Denies deformity and Denies limited range of motion Skin/Breast Denies bleeding lesions, Denies changing lesions and Denies rash Neuro Denies abnormal gait, Denies behavioral changes and Denies lack of coordination Psych Denies behavioral changes Physical exam (Primary Care) Vital Signs: Last Vital Signs BP 110/72 08/21/24 09:08 BMI result Body Mass Index 30.7 BMI Assessment/Plan discussion: High BMI High, discussed plan: lifestyle, weight reduction, dietary and physical activity Tobacco/Smoking Status: Tobacco use Status Tobacco use date assessed 08/21/24 08/21/24 09:18 Patient Tobacco Use Status Never used Tobacco 08/21/24 09:18 e-Cigarette/Vaping Use Never Used 08/21/24 09:18 PHQ-9: PHQ-9 Score PHQ-9: Total score 9 08/21/24 09:24 Depression Screening Interpretation: Positive Depression Screening Follow-up: Existing condition and Follow-up Visit Requested Thrive Assessment: Date of Thrive Assessment Date Thrive assessed 08/15/24 08/21/24 09:18 Currently or been in a relationship where the following occur: No concerns reported Neck Neck: Yes tender Thyroid: diffusely enlarged Resp Effort & Inspection: normal respiratory effort Auscultation: clear to auscultation bilaterally Cardio Jugular venous distension: no JVD Rate: regular rate Rhythm: regular rhythm Heart sounds: S1 normal heart sound present and S2 normal heart sound present Extrem General: Yes full ROM Coding Level of Care Code Est Pt Level 4 (45195) Complex EM visit Add On G2211 Diagnoses Impaired glucose tolerance R73.02 Fibromyalgia M79.7 Hair loss L65.9 Goiter E04.9 Polyarthralgia M25.50 Essential hypertension I10 Pure hypercholesterolemia E78.00 Mild recurrent major depression F33.0 RACHELLE (generalized anxiety disorder) F41.1 Insomnia G47.00 Additional Codes RACHELLE-7 Assessment Billing - RACHELLE-7 Assessment Tool: RACHELLE-7 Assessment 35720 ([id number]) PHQ-9 - 11142 - PHQ-9 Billing: Yes ([id number]) Time Spent (min) 28 Assessment & Plan Assessment & Plan (1) Impaired glucose tolerance: Code(s): R73.02 - Impaired glucose tolerance (oral) Category: Medical (2) Fibromyalgia: Code(s): M79.7 - Fibromyalgia Category: Medical (3) Hair loss: Code(s): L65.9 - Nonscarring hair loss, unspecified Category: Medical (4) Goiter: Code(s): E04.9 - Nontoxic goiter, unspecified Category: Medical (5) Polyarthralgia: Code(s): M25.50 - Pain in unspecified joint Category: Medical (6) Essential hypertension: Code(s): I10 - Essential (primary) hypertension Category: Medical (7) Pure hypercholesterolemia: Code(s): E78.00 - Pure hypercholesterolemia, unspecified Category: Medical (8) Mild recurrent major depression: Code(s): F33.0 - Major depressive disorder, recurrent, mild Category: Medical (9) RACHELLE (generalized anxiety disorder): Code(s): F41.1 - Generalized anxiety disorder Category: Medical (10) Insomnia: Code(s): G47.00 - Insomnia, unspecified Category: Medical Plan The management of the patient's hypertension with atenolol and hyperlipidemia with atorvastatin should continue, along with her fibromyalgia and anxiety treatments using duloxetine and buspirone. Lorazepam for insomnia remains necessary, and Ibuprofen will be used cautiously for pain relief. Emphasis on thyroid function tests and monitoring random glucose levels are advised. Explore Vitamin D status and parathyroid function to assess bone health. Upcoming dermatology or rheumatology consults might be considered in accordance to her symptom persistence. Preventive care and immunization records need updating, with plans for appropriate follow-up visits outlined. Patient was informed and verbally consented to the use of an ambient scribe for clinic note documentation during this visit. During our discussion, I emphasized the importance of continued management for her complex conditions, underscoring adherence to prescribed hypertension and hyperlipidemia medications. The necessity of maintaining her regimen for fibromyalgia and anxiety was discussed, balancing lorazepam?s benefit for insomnia against the risk of dependency. Pain control with NSAIDs should be balanced with prevention of gastrointestinal discomfort and awareness of ibuprofen?s effects on renal and gastrointestinal health. I highlighted the need for follow-up thyroid assessments and pertinent thyroid ultrasound, providing anticipatory guidance on potential findings. Repeat glucose tests were advised due to elevated past results. In terms of vaccinations, pneumococcal vaccine updates were clarified, with her last tetanus documented in 2019. Follow-up arrangements for mammography are to be made. I offered reassurance on skin surveillance tours, and possible specialty referrals if further care with rheumatology or dermatology becomes necessitated. Orders: Orders Comprehensive [place]. Panel Fast Today R73.02 - Impaired glucose tolerance (oral) Thyroid Stimulating Hormone Today L65.9 - Nonscarring hair loss, unspecified Free T4 (Free Thyroxine) Today L65.9 - Nonscarring hair loss, unspecified US thyroid Today E04.9 - Nontoxic goiter, unspecified Cyclic Citrullinated Peptide Today M25.50 - Pain in unspecified joint SARAHI Reflex Titer and Pattern Today M25.50 - Pain in unspecified joint Vitamin D 25-OH Total Today E55.9 - Vitamin D deficiency, unspecified Lipid Panel Today E78.5 - Hyperlipidemia, unspecified Erythrocyte Sedimentation Rate Today M25.50 - Pain in unspecified joint Rheumatoid Factor Today M25.50 - Pain in unspecified joint C Reactive Protein Today M25.50 - Pain in unspecified joint Anti DNA DS Antibody Today M25.50 - Pain in unspecified joint Referrals Dermatology Referral L65.9 - Nonscarring hair loss, unspecified Rheumatology Referral M25.50 - Pain in unspecified joint Medications: Discontinued tizanidine Discontinued Reason: Patient no longer taking 2 mg PO TID 7 days PRN 14 caps 0RF muscle spasticity zzjxiapvai-nsvxyhygscbge-cjxr 50-300-40 mg (Fioricet) Discontinued Reason: Patient no longer taking 1 cap PO Q8H PRN 14 caps 0RF pain cyclobenzaprine Discontinued Reason: Patient no longer taking 10 mg PO TID PRN 20 tabs 0RF muscle spasm benzonatate Discontinued Reason: Patient Completed Course 100 mg PO TID PRN 14 caps 0RF cough acetaminophen (Tylenol Extra Strength) Discontinued Reason: Patient no longer taking 1,000 mg (2 x 500 mg) PO Q8H PRN 30 tabs 0RF fever or pain dicyclomine Discontinued Reason: Patient Completed Course 20 mg PO QID 120 tabs 3RF fenofibrate nanocrystallized Discontinued Reason: Patient no longer taking 145 mg PO DAILY 30 tabs 3RF Patient Instructions: - Continue taking prescribed medications as instructed. - Monitor your blood pressure regularly. - Take ibuprofen for pain relief, but be cautious of side effects. - Follow dietary advice to help manage blood sugar levels. - Schedule your thyroid function tests and ultrasound as planned. - Discuss any new or worsening symptoms with healthcare provider. - Keep follow-up appointments scheduled to monitor health status. - Maintain up-to-date vaccinations as necessary. - Stay compliant with annual screenings like mammography.
--- OUTSIDE RECORDS SUMMARY | 2024-08-21 09:41 | XMS_ITS | Encounter Summary ---
Author Organization [facility] Address [address] [place] [address] Care Team Providers Care Photograph Printer Name Role Phone Constanza Reddy MD Primary Care Prov ider Reason for Visit * Imaging (Routine) - Authorized Specialty Diagnoses / Procedures Referred By Contac t Referred To Contact Radiology Diagnoses Encounter for screening mammogram for breast cancer Procedures MG Mammo Digital Screening w Ant bilat MG Mammo Digital Screening w Ant bilConstanza Martinez MD [address] [place] [id number] Phone: tel: fax: [facility] Referral ID Status Reason Start Date Expiration Date V isits Requested Visits Authorized [id number] Authorized 01/05/2024 01/04/2025 1 1 Encounter Details Date Type Department Care Team (Latest Contact Info) Description 08/20/2024 9:28 AM EDT - 08/20/2024 11:59 PM EDT Hospital Encounter Radiology Department - [address] [address] Encounter for screening mammogram for breast cancer Discharge Disposition: Home or Self Care Social History Tobacco Use Types Packs/Day Years Used Date Smoking Tobacco: Never Smokeless Tobacco: Never Alcohol Use Standard Drinks/Week Comments No 0 (1 standard drink = 0.6 oz pur e alcohol) Housing Instability Answer Date Recorde d Are you worried that in the next 2 months you may not have stable housing? No 03/23/2024 Food Access & Nutrition Answer Date Rec orded Do you have access to a vari ety of food including fruits and vegetables? Yes 03/23/2024 Access to Healthcare Answer Date Record ed Within the last 3 months, ho w many times did you visit the emergency department for your medical care? 0 03/23/2024 Health Literacy Answer Date Recorded How often do you need to hav e someone help you when you read instructions, pamphlets, or other written material from your doctor or pharmacy? Never 03/23/2024 Caregiver: How often do you need to have someone help you when you read instructions, pamphlets, or other written material from your doctor or pharmacy? Not on file 03/23/2024 Transportation Answer Date Recorded Has the lack of transportati on kept you from meetings, work, or from getting things needed for daily living? No Has the lack of transportati on kept you from medical appointments or from getting medications? No 03/23/2024 Social Isolation Answer Date Recorded How often do you feel lonely or isolated from those around you? Sometimes 03/23/2024 Food Risk Answer Date Recorded Within the past 12 months we worried whether our food would run out before we got money to buy more. Never true 03/23/2024 Within the past 12 months th e food we bought just didn't last and we didn't have money to get more. Never true 03/23/2024 Dependent Care Answer Date Recorded Do you need help finding or paying for care for your loved ones. For example, children's ministries director or elderly care for an older adult? No 03/23/2024 Education Answer Date Recorded Do you think completing more education or training, like finishing a GED, going to college, or learning a trade, would be helpful for you? No 03/23/2024 Employment and Income Answer Date Recor ded During the last four weeks, have you been actively looking for work? No 03/23/2024 Living Situation Answer Date Recorded What is your living situation? 0 03/23/2024 Comments No Sex and Gender Information Value Date Recorded Sex Assigned at Not on file Legal Sex Female 5:42 PM EST Gender Identity Not on file Sexual Orientation Not on file documented as of this encounter Medications at Time of Discharge atenoloL (TENORMIN) 50 mg tablet Take 1 tablet (50 mg total) by mouth 1 (one) time each day. 90 tablet 1 03/07/2024 atorvastatin (LIPITOR) 40 mg tablet Take 1 tablet (40 mg total) by mouth 1 (one) time each day. 90 tablet 1 03/07/2024 DULoxetine (CYMBALTA) [address] capsule Take 1 capsule (60 mg total) by mouth. LORazepam (ATIVAN) 1 mg tablet TAKE 1 TABLET BY MOUTH EVERY MORNING ANXIETY 09/28/2022 LORazepam (ATIVAN) 2 mg tablet Take 0.5 tablets (1 mg total) by mouth. omeprazole (PriLOSEC) [address] capsule Take 1 capsule (20 mg total) by mouth 1 (one) time each day. 90 capsule 1 03/07/2024 topiramate (TOPAMAX) 100 mg tablet TAKE 1 TABLET BY MOUTH TWICE A DAY TAKE HALF HOUR [employer] MEALS 01/16/2024 traZODone (DESYREL) 150 mg tablet Take 1 tablet (150 mg total) by mouth at bedtime. 03/02/2024 documented as of this encounter Discharge Disposition Disposition Code Departure Means Destination Home or Self Care documented in this encounter Plan of Treatment Not on file documented as of this encounter Goals Goal Patient Goal Type Associated Problems Recent Progress Patient-Stated? Author PLOF General Yes Kvng Silverio, PT Note: Pt will report a 50% decrease in amount of sleep disturbances due to pain NOT MET Pt will increase trunk rotation 8deg B NOT MET Pt will increase lower trap strength to 3+/5 MET Pt will improve shoulder ER to 4/5R and 4-/5L MET LTG General Yes Kvng Silverio PT Note: Pt will not require compression trunk brace/sleeve NOT MET Pt will wake <3x/wk due to neck/mid back pain NOT MET Pt will require no assist in doing dishes or cleaning home NOT MET documented as of this encounter Procedures Procedure Name Priority Date/Time Associated Diagnosis Comments MG MAMMO DIGITAL SCREENING W ANT BILAT Routine 08/20/2024 9:40 AM EDT Encounter for screening mammogram for breast cancer documented in this encounter Results * MG Mammo Digital Screening w Ant bilat (08/20/2024 9:40 AM EDT) Anatomical Region Laterality Modality Breast Bilateral Mammography 08/20/2024 2:49 PM EDT Impressions 08/20/2024 3:02 PM EDT Benign. BI-RADS CATEGORY: 1 - NEGATIVE RECOMMENDATION: Screening bilateral mammogram is recommended in 1 year. Mammo Location: [facility], [address] [place] [address], [id number], . -------- FINAL REPORT -------- Dictated By: Shae Donnelly Dictated Date: 08/20/2024 14:49 ET Assigned Physician: Shae Donnelly Reviewed and Electronically Signed By: Shae Donnelly Signed Date: 08/20/2024 15:02 ET Workstation ID: [id number] Transcribed By: Self Edit Transcribed Date: 08/20/2024 14:53 ET Narrative 08/20/2024 3:02 PM EDT CLINICAL: 58 years old, Female, routine annual exam. COMPARISON: Mammograms dating back to 11/23/2019 most recent of 08/04/2023. ?? TECHNIQUE: Bilateral MLO and CC views were obtained digitally with 3-D mammogram (digital breast tomosynthesis). Computer-aided detection was utilized in evaluation of this exam (CAD). FINDINGS: There is no evidence of suspicious mass or architectural distortion. ??No worrisome calcifications are evident. ??There is a biopsy clip in the upper outer left breast. ??There has been no significant change from prior exam(s). ?? BREAST DENSITY: B - There are scattered areas of fibroglandular density. Procedure Note Shae Donnelly MD - 08/20/2024 CLINICAL: 58 years old, Female, routine annual exam. COMPARISON: Mammograms dating back to 11/23/2019 most recent of08/04/2023. TECHNIQUE: Bilateral MLO and CC views were obtained digitally with 3-Dmammogram (digital breast tomosynthesis). Computer-aided detection wasutilized in evaluation of this exam (CAD). FINDINGS: There is no evidence of suspicious mass or architectural distortion. Noworrisome calcifications are evident. There is a biopsy clip in the upperouter left breast. There has been no significant change from priorexam(s). BREAST DENSITY: B - There are scattered areas of fibroglandular density. IMPRESSION: Benign. BI-RADS CATEGORY: 1 - NEGATIVE RECOMMENDATION: Screening bilateral mammogram is recommended in 1 year. Mammo Location: [facility], [address] [place] [address], [id number], . -------- FINAL REPORT -------- Dictated By: Shae Donnelly Dictated Date: 08/20/2024 14:49 ET Assigned Physician: Shae Donnelly Reviewed and Electronically Signed By: Shae Donnelly Signed Date: 08/20/2024 15:02 ET Workstation ID: [id number] Transcribed By: Self Edit Transcribed Date: 08/20/2024 14:53 ET us Constanza Reddy MD IMG BI PROCEDURES Final Result documented in this encounter Visit Diagnoses Diagnosis Encounter for screening mammogram for breast cancer documented in this encounter Additional Health Concerns Assessment Noted Time PHQ-9 Depression Total Score: 7 05/30/19 25 11:27 AM EDT documented as of this encounter Care Teams Photograph Printer Relationship Specialty Start Date End Date Constanza Reddy MD [address] [place] [phone] PCP - General Internal Medicine 01/19/24 documented as of this encounter
== END 2024-08-21 09:40 | disposition home or self-care (01) ==
PROVIDERS: PCP Internal Medicine; Visit Provider Internal Medicine
DX: R73.02 Impaired glucose tolerance (oral) (principal); M79.7 Fibromyalgia; L65.9 Nonscarring hair loss, unspecified; E04.9 Nontoxic goiter, unspecified; M25.50 Pain in unspecified joint; I10 Essential (primary) hypertension; E78.00 Pure hypercholesterolemia, unspecified; F33.0 Major depressive disorder, recurrent, mild; F41.1 Generalized anxiety disorder; G47.00 Insomnia, unspecified

== ENCOUNTER 2024-08-21 08:58 | Outpatient (REF) | payer OTHER, SELFPAY ==
[2024-08-21 11:45] LABS: Rheumatoid Factor < 13.0 IU/mL (<15.0)
[2024-08-21 11:57] LABS: Alanine Aminotransferase 23 U/L (0-31); Albumin Level 4.3 g/dL (3.5-5.0); Alkaline Phosphatase 72 U/L (39-117); Anion Gap 11 (12-20); Aspartate Amino Transferase 24 U/L (5-31); Bilirubin Total 0.4 mg/dL (0.0-1.0); Blood Urea Nitrogen 13 mg/dL (9-16); C Reactive Protein 1.89 mg/dL (< or = 0.50); Calcium 8.9 mg/dL (8.4-10.2); Carbon Dioxide 25 mmol/L (22-29); Chloride 111 mmol/L (96-108); Cholesterol 89 mg/dL (<200); Estimated Glomerular Filt Rate > 60; Glucose Fasting 115 mg/dL (60-99); HDL Cholesterol 25 mg/dL (>40); LDL Cholesterol Calculated 23 mg/dL (<100); Potassium 3.7 mmol/L (3.3-5.1); Sodium 143 mmol/L (135-145); Total Protein 6.9 g/dL (6.5-8.0); Triglycerides 208 mg/dL (<150)
[2024-08-21 12:09] LABS: Erythrocyte Sedimentation Rate 16 MM/HR (0-20)
[2024-08-21 12:16] LABS: Free T4 (Free Thyroxine) 0.85 ng/dL (0.71-1.85); Thyroid Stimulating Hormone 1.38 uIU/mL (0.32-4.0); Vitamin D 25-OH Total 53.8 ng/mL (>30)
[2024-08-22 20:04] LABS: Anti DNA DS Antibody <1 IU/mL
[2024-08-23 09:58] LABS: Cyclic Citrullinated Peptide <16 UNITS
[2024-08-23 15:14] LABS: Anti Nuclear Antibody Screen NEGATIVE (NEGATIVE)
== END 2024-08-21 08:59 | disposition home or self-care (01) ==
LOC: HO.LAB 08:58
PROVIDERS: PCP Internal Medicine; Visit Provider Internal Medicine
DX: M79.7 Fibromyalgia (principal); R73.02 Impaired glucose tolerance (oral); L65.9 Nonscarring hair loss, unspecified; E04.9 Nontoxic goiter, unspecified; M25.50 Pain in unspecified joint; I10 Essential (primary) hypertension; E78.00 Pure hypercholesterolemia, unspecified; F33.0 Major depressive disorder, recurrent, mild; F41.1 Generalized anxiety disorder; G47.00 Insomnia, unspecified; E55.9 Vitamin D deficiency, unspecified; Z79.899 Other long term (current) drug therapy
CPT/HCPCS: 36415; 80053; 80061; 82306; 84439; 84443; 85652; 86038; 86140; 86200; 86225; 86431; 96127; 99212

== ENCOUNTER 2024-10-01 11:34 | Outpatient (REF) | payer OTHER, SELFPAY ==
--- NOTE | ~2024-10-01 | US_ITS ---
EXAMINATION: US THYROID HISTORY: E04.9 - Nontoxic goiter, unspecified TECHNIQUE: Real-time grayscale ultrasound imaging was performed and images were reviewed. COMPARISON: There are no prior studies available for comparison. FINDINGS: SIZE: The right thyroid lobe measures 5.0 x 1.2 x 1.4 cm. The left thyroid lobe measures 4.3 x 1.2 x 1.5 cm. The isthmus measures 3 mm. FLOW: Flow to the gland is normal. ECHOGENICITY: The echotexture of the gland is homogeneous. NODULES: No nodules are identified. US/US thyroid IMPRESSION: Unremarkable thyroid ultrasound. ACR TI-RADS Guidelines TR1 (0 points): Benign, No follow-up or biopsy required TR2 (2 points): Not Suspicious, No biopsy or follow up indicated TR3 (3 points): Mildly Suspicious, FNA if >= 2.5 cm, Follow if >= 1.5 cm TR4 (4-6 points): Moderately Suspicious, FNA if >= 1.5 cm, Follow if >= 1.0 cm TR5 (>=7 points): Highly Suspicious, FNA if >= 1.0 cm, Follow if >= 0.5 cm Electronically signed by: Dmitry Rodney MD 10/01/2024 12:46 PM EDT
--- OUTSIDE RECORDS SUMMARY | 2024-10-01 12:44 | XMS_ITS | Clinical Summary ---
Author Organization [facility], Address [address] [place] [address] Phone Care Team Providers Care Asw Specialist Name Role Phone Lesli Elizondo MD Primary Care Provider [phone] Social History Tobacco Use Types Packs/Day Years Used Date Smoking Tobacco: Never Assessed Comments Unknown Sex and Gender Information Value Date Recorded Sex Assigned at Not on file Legal Sex Female 2:26 PM EDT Gender Identity Not on file Sexual Orientation Not on file Last Filed Vital Signs Vital Sign Reading Time Taken Comments Blood Pressure 125/77 09/26/2019 11:17 AM EDT Pulse 79 09/26/2019 11:17 AM EDT Temperature 36.2 C (97.2 F) 09/26/2019 11:17 AM EDT Respiratory Rate - - Oxygen Saturation 97% 09/26/2019 11:17 AM EDT Inhaled Oxygen Concentration - - Weight 76.2 kg (168 lb) 09/26/2019 11:17 AM EDT Height 152.4 cm (5') 09/26/2019 11:17 AM EDT Body Mass Index 32.81 09/26/2019 11:17 AM EDT Plan of Treatment Health Maintenance Due Date Last Done Comments Breast Cancer Screening 1965 Hepatitis B Vaccine (1 of 3 - 19+ 3-dose series) 10/28 Colorectal Cancer Screening: Annual FOBT 2013 Colorectal Cancer Screening: Colonoscopy 2013 Colorectal Cancer Screening: Sigmoidoscopy 2013 Diabetes: Hemoglobin A1C 09/26/2019 Diabetes: Ophthalmology Exam 09/26/2019 Diabetes: Pedal Pulse Checked 09/26/2019 Diabetes: Sensory Foot Exam 09/26/2019 Diabetes: Visual Foot Exam 09/26/2019 Pneumococcal Vaccine: 50+ Ye ars (2 of 2 - PCV20 or PCV21) 02/14/2020 02/13/2019 Influenza Vaccine (#1) 2024 Pneumococcal Vaccine: Peds ( 0 to 5 Years) and At-Risk Patients (6 to 49 Years) Discontinued 02/13/2019 Insurance [facility] [place] [id number] Care Teams Asw Specialist Relationship Specialty Start Date End Date Lesli Elizondo MD [address] [place] [address] PCP - General Internal Medicine 09/25/19
--- OUTSIDE RECORDS SUMMARY | 2024-10-01 12:44 | XMS_ITS | Clinical Summary ---
Author Organization [facility] Address [address] [place] [address] Care Team Providers Care Credit Risk Officer Name Role Phone Lesli Gomez MD Primary Care Provider [phone] Social History Tobacco Use Types Packs/Day Years Used Date Smoking Tobacco: Never Assessed Sex and Gender Information Value Date Recorded Sex Assigned at Not on file Gender Identity Not on file Sexual Orientation Not on file Job Start Date Occupation Industry Not on file Not on file Not on file Plan of Treatment Health Maintenance Due Date Last Done Comments Hepatitis B Vaccines (1 of 3 - 3-dose series) 1965 Hepatitis C Screening 1964 Depression Screening 1976 Preventative Health Evaluation 1982 Cervical Cancer Screening (Pap Smear) 1985 Colon Cancer Screening (Colonoscopy) 2009 Breast Cancer Screening (Mammogram) 2014 Shingrix-Zoster Vaccine (1 o f 2) 2014 COVID-19 Vaccine (3 2023-2 5 season) 2023 05/19/2020, 04/28/2020 Influenza Vaccine (#1) 2024 DTap / Tdap / Td (2 - Td or Tdap) 02/13/2029 02/13/2019 Pneumococcal Vaccine Aged Out 02/13/2019 No long er eligible based on patient's age to complete this topic RSV Ped < 20 months Aged Out No longe r eligible based on patient's age to complete this topic Care Teams Credit Risk Officer Relationship Specialty Start Date End Date Lesli Gomez MD PCP - General Internal Medicine 09/05/19
--- OUTSIDE RECORDS SUMMARY | 2024-10-01 12:44 | XMS_ITS | Clinical Summary ---
Author Organization [facility] g Address [address] [place] [address] Phone Care Team Providers Care Power Barker Operator Name Role Phone Unavailable Primary Care Provider Unavailabl e Allergies Active Allergy Reactions Criticality Noted Date Comments Oxycodone-Acetaminophen 04/01/2015 Medications DULoxetine (CYMBALTA) [address] capsule Take 1 capsule (60 mg total) by mouth. Active LORazepam (ATIVAN) 1 mg tablet TAKE 1 TABLET BY MOUTH EVERY MORNING ANXIETY 3 Active LORazepam (ATIVAN) 2 mg tablet Take 0.5 tablets (1 mg total) by mouth. Active topiramate (TOPAMAX) 100 mg tablet TAKE 1 TABLET BY MOUTH TWICE A DAY TAKE HALF HOUR BEBORE MEALS 4 Active traZODone (DESYREL) 150 mg tablet Take 1 tablet (150 mg total) by mouth at bedtime. 4 Active atorvastatin (LIPITOR) 40 mg tablet TAKE 1 TABLET BY MOUTH 1 TIME EACH DAY. 90 tablet 1 5 Active polyethylene glycol (MIRALAX) 17 gram packet MIX 1 PACKET IN LIQUID AND TAKE BY MOUTH DAILY NEEDED FOR CONSTIPATIO N. 28 packet 5 5 Active omeprazole (PriLOSEC) [address] capsule TAKE 1 CAPSULE BY MOUTH 1 TIME EACH DAY. 90 capsule 1 5 Active atenoloL (TENORMIN) 50 mg tablet TAKE 1 TABLET BY MOUTH 1 TIME EACH DAY. 90 tablet 1 5 Active atorvastatin (LIPITOR) 40 mg tablet Take 1 tablet (40 mg total) by mouth 1 (one) time each day. 90 tablet 1 4 09/12/19 25 Discontinued atenoloL (TENORMIN) 50 mg tablet Take 1 tablet (50 mg total) by mouth 1 (one) time each day. 90 tablet 1 4 09/12/19 25 Discontinued omeprazole (PriLOSEC) [address] capsule Take 1 capsule (20 mg total) by mouth 1 (one) time each day. 90 capsule 1 4 09/12/19 25 Discontinued Active Problems Problem Noted Date Diagnosed Date Essential hypertension 02/01/2023 Assessment & Plan (03/07/2024 12:52 PM EST): At the time of this visit, the blood pressure is well controlled on atenolol 50 mg. The patient is instructed to follow a low sodium diet and to follow up in 3 months. Orders: Comprehensive metabolic panel; Future Hemoglobin A1c; Future Lipid panel with reflex to direct LDL; Future Urinalysis with reflex microscopic and culture; Future Cervical spondylosis 06/19/2021 Overview (05/25/2023): Last Assessment & Plan: Ms. Zabala is here for her 1 year follow-up after C3-4 ACDF with plating on 05/07/2021. She has no neck pain and much better mobility. She denies numbness or tingling in her hands and does not feel limited in her activity. She has no trouble turning with driving. On exam, there is no step-off, tenderness or deformity of the cervical spine. She has 2 well-healed right transverse incisions (the lower 1 from a remote C4-6 fusion and plating). Her voice is normal. Cervical rotation is 45 degrees bilaterally, strength 5/5, sensation light touch intact, gait is steady, there are no myelopathic findings. Review of the AP/lateral flexion/extension x-rays from today show the graft plate and screws to all be in good position. She is not yet solidly fused as I can still see a faint gap between the graft and endplates. There is no gross instability. The new plate at C3-4 with states that just anterior to the lip of the existing plate. Ms. Zabala is doing quite well and has no restrictions on her activity. She is welcome to see us in the future if there are any new concerns. Assessment & Plan (02/10/2024 3:51 PM EST): I think we have made as much progress as we are going to in terms of her cervical spine. She did well after her surgeries and the tingling in her hands is likely the residual. She is functional and can perform ADLs. I hope she will continue her exercise routine at home. In terms of the mid thoracic pain, she likely has degenerative changes there that may respond to localized treatment such as facet injections or use of a TENS unit. I will send her for thoracic spine MRI to see if we can direct treatment. Hemorrhoids 04/14/2021 Anemia 04/14/2021 Mixed stress and urge urinary incontinence 04/14 Abnormal uterine bleeding 04/14/2021 Migraine headache 04/14/2021 Carpal tunnel syndrome 04/14/2021 Neuroforaminal stenosis of lumbar spine 09/03/19 Overview (05/25/2023): With multiple previous lower back surgeries status post MRI July [address] Gerber. S/p lumbar fusion 09/2019 Anxiety 02/13/2019 Insomnia 02/13/2019 Diabetes mellitus type 2, un complicated ([facility] V24, [facility] V28) 08/04/2018 Assessment & Plan (03/07/2024 12:52 PM EST): Good control of diabetes on diet. Patient will continue with yearly Podiatric and Ophthomologic evaluations. We will check a hemoglobin A1c, before next visit. Patient will follow up in 3 months Orders: Comprehensive metabolic panel; Future Hemoglobin A1c; Future Lipid panel with reflex to direct LDL; Future Urinalysis with reflex microscopic and culture; Future Ambulatory referral to Nutrition Services; Future Hyperlipidemia 04/01/2015 Assessment & Plan (03/07/2024 12:52 PM EST): Given the patients cardiac risk profile, the patient requires an LDL cholesterol of less than 70. I have instructed the patient on the principles of a low cholesterol diet and the importance of regular exercise. We will continue atorvastatin 40 mg a day. Orders: Comprehensive metabolic panel; Future Hemoglobin A1c; Future Lipid panel with reflex to direct LDL; Future Urinalysis with reflex microscopic and culture; Future GERD (gastroesophageal reflux disease) 6 Depression 04/01/2015 Overview (05/25/2023): Follows with [facility] Fibromyalgia 04/01/2015 Overview (05/25/2023): [facility] Encounters Date Type Department Care Team Description 08/20/2024 9:28 AM EDT - 08/20/2024 11:59 PM EDT Hospital Encounter Radiology Department - [address] [address] Encounter for screening mammogram for breast cancer Discharge Disposition: Home or Self Care from Last 3 Months Immunizations Name Administration Dates Next Due H1N1 Inj Preservative Free 01/30/2009 Influenza Quadravalent, MDCK , 0.5ml, preservative free (Flucelvax) 6mo and older 02/04/2021,12/21/2019 Influenza trivalent, with pr eservative (Fluzone; Afluria) 6mo and older 01/26/2022,12/19/2018,03/07/2018,02/28,12/29/2015,02/12/2015,01/23/2014 ,02/19/2013,11/11/2011,05/27/2011 MMRV, measles mumps rubella and varicella live (Proquad) 4yo to less than 7yo 11/15/2007 Pfizer SARS-CoV-2 COVID-19, mRNA, LNP-S, preservative free 05/19/2020,04/28/2020 Pneumococcal conjugate 13 va lent (Prevnar 13, PCV13) 2mo and older 02/13/2019 Pneumococcal polysaccharide 23 valent (Pneumovax 23) 2yo and older 11/28/2010 TD, Adsorbed, Preservative Free 01/16/2009 Tdap Tetanus diptheria acell ular pertussis (Boostrix; Adacel) 7yo and older 02/13/2019 Zoster recombinant (Shingrix ) 19yo and older 09/02/2021,06/01/2021 Surgical History Surgery Date Site/Laterality Comments CHOLECYSTECTOMY PROCEDURE: DE LAPAROSCOPY SURG CHOLECYSTECTOMY OTHER SURGICAL HISTORY PROCEDURE: DECOMPRESS DISC RF LUMBAR; COMMENT: 2014 ROTATOR CUFF REPAIR Right PROCEDURE: HISTORICAL ROTATOR CUFF REPAIR CARPAL TUNNEL RELEASE Bilateral PROCEDURE: DE NEUROPLASTY &/TRANSPOS MEDIAN NRV CARPAL TUNNE OTHER SURGICAL HISTORY PROCEDURE: DE ARTHRODESIS POSTERIOR INTERBODY 1 NTRSPC LUMBAR; COMMENT: 09/2019 HYSTERECTOMY PROCEDURE: HISTORICAL HYSTERECTOMY NECK SURGERY PROCEDURE: HISTORICAL NECK SURGERY; COMMENT: C3-4 ACDF 05/07/[address] Gerber and C4-[address] Rosario BREAST BIOPSY Left PROCEDURE: BX BREAST; PERC NEEDLE CORE W/IMAG GUID; COMMENT: many yrs ago-benign Medical History Medical History Date Comments Hyperlipidemia DX:Hyperlipidemi a Esophageal reflux DX:Esophageal reflux Depressive disorder DX:Depressiv e disorder Palpitations DX:Palpitations; COMMENT: on atenolol Diabetes mellitus type 2 in obese 08/04/2018 DX:Diabetes mellitus type 2 in obese Chronic low back pain 09/13/2018 DX:Chronic low back pain Anxiety state DX:Anxiety state Essential hypertension DX:Essent ial hypertension Cervical spondylosis 06/19/2021 DX:Cervical spondylosis Family History Medical History Relation Name Comments Diabetes Brother 3 brothers Coronary artery disease Father Breast cancer Mother dx'd age 82 Coronary artery disease Mother dx'd age 82 Diabetes Mother dx'd age 82 Hypertension Mother dx'd age 82 Relation Name Status Comments Brother Father Alive Mother dx'd age 82 Social History Tobacco Use Types Packs/Day Years Used Date Smoking Tobacco: Never Smokeless Tobacco: Never Tobacco Cessation:Counseling Given: Not Answered Alcohol Use Standard Drinks/Week Comments No 0 [...] care for your loved ones. For example, director of early childhood education or elderly care for an older adult? [...] on file Sexual Orientation Not on file Obstetrics History Para Term AB IAB SAB Ectopic Multiple Livin g Live Births 2 2 2 2 Date Outcome GA Total Labor Labor/2nd/3rd Weight Sex Type Anes PTL Heaven A1 A5 Name Clin Term Term Last Filed Vital Signs Vital Sign Reading Time Taken Comments Blood Pressure 92/56 03/23/2024 4:07 PM EST Pulse 92 03/23/2024 4:07 PM EST Temperature 36.8 C (98.3 F) 03/23/2024 4:07 PM EST Respiratory Rate 12 03/07/2024 8:26 AM EST Oxygen Saturation 97% 03/23/2024 4:07 PM EST Inhaled Oxygen Concentration - - Weight 75.8 kg (167 lb) 03/07/2024 8:26 AM EST Height 152.4 cm (5') 03/07/2024 8:26 AM EST Body Mass Index 32.61 03/07/2024 8:26 AM EST Plan of Treatment Health Maintenance Due Date Last Done Comments Hepatitis B Vaccines (1 of 3 - 19+ 3-dose series) 10/29/1983 HIV Screening 02/27/2022 Medicare Annual Wellness Visit 02/27/2022 Diabetes: Annual Urine Albumin-Creatinine Ratio (uACR) 08/06/2023 08/05/2022 COVID-19 Vaccine ( season) 2023 02/21/2021, 05/19/2020, 04/28/2020 Pneumococcal Vaccine: 50+ Years (3 of 3 - PCV20 or PCV21) 02/14/2024 02/13/2019, 11/28/2010 Diabetes: Blood Sugar Control Test (HGBA1C) 07/18/2024 01/19/2024, 10/24/2023, 05/20/2023 Influenza Vaccine (#1) 2024 , 01/26/2022, 02/04/2021, Additional history exists Diabetes: Annual Retina Eye Exam 11/29/2024 11/30/2023, 09/10/2022 Diabetes: Annual GFR (Glomerular Filtration Rate) 01/18/2025 01/19/2024, 10/24/2023, 08/02/2023 Hypertension/CHF/CAD Annual BMP Blood Test 01/18/2025 01/19/2024, 10/24/2023, 08/02/2023 Diabetes: Annual Foot Exam 03/07/2025 03/07/2024, Social Influencers of Health Screening 03/23/2025 03/23/2024, 05/23/2023 Depression Screening 05/29/2025 05/29/2024, 05/23/19 24 Breast Cancer Screening 08/20/2026 08/21/19 25, 08/04/2023, 08/04/2023 Colorectal Cancer Screening: Colonoscopy 12/20/2027 12/19/2017 Cholesterol Screening (Lipid Panel) 10/23/2028 10/24/2023, 08/05/2022 DTaP,Tdap,and Td Vaccines (2 - Td or Tdap) 02/13/2029 02/13/2019, 01/16/2009 RSV Immunization Adult Patients (1 - 1-dose 75+ series) 10/29/2039 MMR Vaccines Aged Out 11/15/2007 No longer eligi ble based on patient's age to complete this topic Varicella Vaccines Aged Out 11/15/2007 No longer eligible based on patient's age to complete this topic Hepatitis C Screening Addressed 07/06/2018 Overri dden with the intention of not completing the topic Zoster Vaccines Completed 09/02/2021, 05/19, 11/15/2007 HIB Vaccines Aged Out No longer eligi ble based on patient's age to complete this topic HPV Vaccines Aged Out No longer eligi ble based on patient's age to complete this topic Hepatitis A Vaccines Aged Out No long er eligible based on patient's age to complete this topic IPV Vaccines Aged Out No longer eligi ble based on patient's age to complete this topic Meningococcal ACWY Vaccine Aged Out N o longer eligible based on patient's age to complete this topic Meningococcal B Vaccine Aged Out No l onger eligible based on patient's age to complete this topic RSV Immunization Patients Under 20 months Aged Out No longer eligible based on patient's age to complete this topic Goals Goal Patient Goal Type Associated Problems [...] and 4-/5L MET LTG General Yes Kvng Silverio, PT Note: Pt will not require compression trunk brace/sleeve NOT MET Pt will wake <3x/wk due to neck/mid back pain NOT MET Pt will require no assist in doing dishes or cleaning home NOT MET Procedures Procedure Name Priority Date/Time Associated Diagnosis Comments MG MAMMO DIGITAL SCREENING W FLORENTINO BILAT Routine 08/20/2024 9:40 AM EDT Encounter for screening mammogram for breast cancer HEMOGLOBIN A1C Routine 05/20/2023 HM URINE ALBUMIN CREATININE RATIO Routine 08/05/2022 LIPID PANEL Routine 08/05/2022 HM COLONOSCOPY Routine 12/19/2017 from Last 3 Months or Most Recently Relevant to Health Maintenance Results * MG Mammo Digital Screening w Florentino bilat (08/20/2024 9:40 AM EDT) Anatomical Region Laterality Modality Breast Bilateral Mammography 08/20/2024 2:49 PM EDT Impressions 08/20/2024 3:02 PM EDT Benign. BI-RADS CATEGORY: 1 - NEGATIVE RECOMMENDATION: Screening bilateral mammogram is recommended in 1 year. Mammo Location: [facility], [address] [place] [address], [id number], . -------- FINAL REPORT -------- Dictated By: Shae Donnelly Dictated Date: 08/20/2024 14:49 ET Assigned Physician: Shae Donnelly Reviewed and Electronically Signed By: Shae Donnelly Signed Date: 08/20/2024 15:02 ET Workstation ID: [id number] Transcribed By: Self Edit Transcribed Date: 08/20/2024 14:53 ET Narrative 08/20/2024 3:02 PM EDT CLINICAL: 58 years old, Female, routine annual exam. COMPARISON: Mammograms dating back to 11/23/2019 most recent of 08/04/2023. TECHNIQUE: Bilateral MLO and CC views were obtained digitally with 3-D mammogram (digital breast tomosynthesis). Computer-aided detection was utilized in evaluation of this exam (CAD). FINDINGS: There is no evidence of suspicious mass or architectural distortion. No worrisome calcifications are evident. There is a biopsy clip in the upper outer left breast. There has been no significant change from prior exam(s). BREAST DENSITY: B - There are scattered [...] is recommended in 1 year. Mammo Location: [facility], [address] [place] [address], [id number], . -------- FINAL REPORT -------- Dictated By: Shae Donnelly Dictated Date: 08/20/2024 14:49 ET Assigned Physician: Shae Donnelly Reviewed and Electronically Signed By: Shae Donnelly Signed Date: 08/20/2024 15:02 ET Workstation ID: [id number] Transcribed By: Self Edit Transcribed Date: 08/20/2024 14:53 ET us Constanza Reddy MD IMG BI PROCEDURES Final Result * Hemoglobin A1c (05/20/2023) Hemoglobin A1C 6.4 % Blood Venous blood specimen / Unknown Historical Provider LAB BLOOD ORDERABLES Cony l Result * Urine Albumin Creatinine Ratio (08/05/2022) Pathologist [facility] Urine Albumin Creatinine Ratio <12.1 [facility] Provider HEALTH MAINTENANCE Final Result * Lipid panel (08/05/2022) [facility] LDL/HDL Ratio 4 Triglycerides 256 mg/dL Cholesterol 145 mg/dL HDL 40 mg/dL LDL Cholesterol 54 mg/dL Blood Venous blood specimen / Unknown Result [facility] Provider LAB BLOOD ORDERABLES Cony l Result * Colonoscopy (12/19/2017) Pathologist [facility] Colonoscopy patient reported Anatomical Region Laterality Modality Other [facility] Provider HEALTH MAINTENANCE Final Result from Last 3 Months or Most Recently Relevant to Health Maintenance Insurance [facility] MEDICARE Member Subscriber Plan / Payer (Ef fective 2012-Present) Name:JOSELITO LOU Relation to Subscriber:Self Name:Joselito Lou Payer ID:[id number] Group ID:[id number] Type:Not on file Address: [address] [place] [address]
--- OUTSIDE RECORDS SUMMARY | 2024-10-01 12:44 | XMS_ITS | Data Portability ---
Author Organization [facility] Address [address] [place] [address] Care Team Providers Care Director Of Database Marketing Name Role Phone [facility] Referring Provider [phone] Assessment Encounter Date Assessment Date Assessment LastModified by Organization Details LastModified Time 08/15/2022 08/15/2022 As noted, we wer e called to see this patient regarding concerns of sore throat. Evaluation in the field was performed by my pet ambassador colleague, as noted above, I provided real-time [...] V potassium 500 mg tablet 2022 023 [id number], [address] [facility], [place], [address], 3 11:55:38 Patient TargetsNo targets recorded. Patient InstructionsNo instructions recorded. Reason for Referral None Reported. Medical Equipment None Reported. Allergies Allergen ID Allergen Name Allergen Category Reaction Reaction Severity Criticality Documentation Date Start Date Code Code System Note Provider Name and Address Organization Details Recorded Time 8031 trazodone medicatio n Not available Not available Not available 01/17/2024 51742 RxNorm Not Available [facility] - production 4 [...] blood by Pulse oximetry Body temperature Systolic And Diastolic Provider Name and Address Organization Details Last Updated DateTime 3 18 /min 125 /min 96 % 96 % 99.9 [degF] 114/76 mm[Hg] Not Available [facility] - production 3 11:47:32 Social History None recorded. Functional Status None recorded. Mental Status None recorded. Family History Nothing Reported. Medical History No medical history recorded. Gynecological HistoryNo gynecological history recorded. Obstetrics History GPAL:G 0 P 0 0 0 0 Past Encounters Encounter ID Performer Location Encounter Start Date Encounter Closed Date Diagnosis/Indication Diagnosis SNOMED-CT Code Diagnosis ICD10 Code Diagnosis Note [id number] FABIAN DIAZ MD [facility] [address] [place] [phone] 08/15/2022 11:47:27 08/16/2022 18:57:52 Acute pharyngitis 382417180 J02.9 Health Concerns Section Related Observation LastModified by Organization Detai ls LastModified Time None Recorded Concern Status LastModified by Organization Details LastModified Time None Recorded Advance Directives Directive None Recorded Payers Insurance Date Sequence Insurance Name Policy Number Policy Alfaro Covered Member ID Alfaro Member ID Guarantor Name 06/04/2023 1 [facility] - DOS ON OR AFTER 2022 - DUAL ELIGIBLE - [employer] OPTIONS AND ONE CARE (MEDICARE REPLACEMENT/ADV ANTAGE - HMO) Christina Lou [id number] Christina Lou Notes Date Note Type Note [...] .................. .................. .................. .................. .................. .................. ............... Outpatient Interviewing Clerk Note From Lotus Ruggiero: Sent to evaluate [...] to continue with tylenol q6 prn. Consulted [facility] who will send script of PCN to pt's pharmacy and reiterated the symptomatic treatment with salt water. [facility] advised pt to take her atenolol anjali. [facility] orders 15mg of IM toradol, which was administered without incident. [facility] discussed red flags to be shared with pt to trigger ER visit. Relayed information to pt who verbalized understanding. There were no further questions or concerns at this time. .................. .................. .................. .................. .................. .................. .................. ............... Disposition: Fulfilled FABIAN DIZA MD [address] [facility],[address], [place], [phone], [facility] [place] 08/15/2022 16:21:19 OBGyn Episode No OBEpisode recorded.
== END 2024-10-01 11:35 | disposition home or self-care (01) ==
LOC: HO.HMGCX 11:34
PROVIDERS: PCP Internal Medicine; Visit Provider Internal Medicine
DX: E04.9 Nontoxic goiter, unspecified (principal)
CPT/HCPCS: 76536

== ENCOUNTER → 2024-10-01 11:37 | Outpatient (BNV) | payer OTHER, SELFPAY | PROVIDERS: PCP Internal Medicine; Visit Provider Radiology Diagnostic Radiology | DX: E04.9 Nontoxic goiter, unspecified (principal) | CPT/HCPCS: 76536 ==

== ENCOUNTER 2024-12-10 15:52 | Emergency (ER) | payer OTHER, SELFPAY ==
--- NOTE | ~2024-12-10 | CT_ITS ---
CLINICAL HISTORY: LLQ pain, hx diverticulitis w resection CT abdomen and pelvis with contrast Comparison: None provided Findings: Hiatal hernia. Right liver lobe anterior segment blush of the enhancement 1.8 x 2 cm, axial image number 21 of 92 on initial portal venous phase imaging. Prior cholecystectomy. Right renal lower pole cortical low-attenuation lesion, 0.9 cm; renal cysts. Prior distal sigmoid colon surgical anastomosis. Mild calcified atherosclerotic disease of the abdominal aorta. Hiatal hernia. Prior rectal surgical anastomosis. Diverticulosis. The appendix is not grossly identified. Prior hysterectomy. Wabm-wq-nazuhtse osteopenia. Prior anterior fixation of L4/L5/S1 with pedicle screws and interlocking rods. L4 left hemilaminotomy. IMPRESSION: 1. No acute intraabdominal or pelvic findings. 2. 1.8 x 2 cm enhancing lesion in the anterior segment of the right liver lobe; probable hepatic hemangioma. Right upper quadrant ultrasound suggested. 3. Prior cholecystectomy, hysterectomy, distal sigmoid colon and rectal surgical partial resection and anastomosis. 4. Diverticulosis. 5. Prior anterior fixation of L4/L5/S1 with pedicle screws and interlocking rods. This document has been electronically signed by: Rohit Guthrie MD on 12/10/2024 21:20:30
[2024-12-10 15:56] VITALS: BP 140/79; PULSE 82; RESP 16; TEMP 36.5; O2SAT 98; BMI 28.3
--- NOTE | 2024-12-10 15:56 | ED_ITS ---
HPI - Abdominal Pain General Chief Complaint: Abdominal Pain Stated Complaint: lt side abdomen pain, has diverticulitis Time Seen by Provider: 12/10/24 20:09 Source: patient Mode of arrival: ambulatory Limitations: no limitations History of Present Illness ED Provider: Dr. Britni Damon HPI narrative: Patient comes to the emergency room complaining of abdominal pain that started about a month ago. Patient states that she has been having intermittent left lower quadrant pain, but today, she has been having constant left lower quadrant pain, no nausea vomiting , states that she has been having diarrhea for 1 month. Patient states that she has history of diverticulosis with history of intestinal resection. Patient denies fever chills, denies UTI symptoms. Related Data Home Medications ?Medication ?Instructions ?Recorded ?Confirmed atenolol 50 mg tablet 50 mg PO DAILY 08/21/2406/12 atorvastatin 40 mg tablet 40 mg PO DAILY 08/21/2406/12 buspirone 7.5 mg tablet 7.5 mg PO BID 08/21/2408/21 duloxetine 60 mg capsule,delayed 60 mg PO BID 08/21/24 08/21/24 release (Cymbalta) lorazepam 1 mg tablet 1 mg PO QAM 08/21/24 5 lorazepam 2 mg tablet 2 mg PO BEDTIME 08/21/2406/12 omeprazole 20 mg capsule,delayed 20 mg PO DAILY 08/21/24 release topiramate 100 mg tablet 100 mg PO BID 08/21/2408/21 trazodone 150 mg tablet 150 mg PO BEDTIME 08/21/24 0 08/21/24 Previous Rx's ?Medication ?Instructions ?Recorded ibuprofen 600 mg tablet 600 mg PO Q6H PRN pain or fe candelaria 03/24/24 #30 tabs hyoscyamine sulfate 0.125 mg tablet 0.125 mg PO QID VT N dyspepsia #20 12/10/24 tabs Allergies Allergy/AdvReac Type Severity Reaction Status Date / Time acetaminophen (From PERCOCET) Allergy Intermediate VOMITING Verified 12/10/24 15:58 oxycodone (From PERCOCET) Allergy Intermediate VOMITING Verified 12/10/24 15:58 trazodone (TRAZODONE) Allergy Unknown UNKNOWN, Verified 12/10/24 15:58 jaw locking Review of Systems Review of Systems Constitutional : No Weight loss, No Fever, No Chills, No Night Sweats, No Fatigue, No Malaise ENT/Mouth : No Hearing loss, No Ear Pain, No Nasal Congestion, No Sinus Pain, No Hoarseness, No sore throat, No Rhinorrhea, No Swallowing Difficulty Eyes: No Eye Pain, No Swelling, No Redness, No Foreign Body, No Discharge, No Vision Changes Cardiovascular : No Chest Pain, No SOB, No Dyspnea on Exertion, No Orthopnea, No Edema, No Palpitations Respiratory : No Cough, No Sputum, No Wheezing, No Smoke Exposure, No Dyspnea Gastrointestinal : No Nausea, No Vomiting, complaining of diarrhea for 2 months, No Constipation, complaining of constant left lower quadrant pain, nonradiating, no CVA tenderness Genitourinary : no irregular bleeding, No Dysuria, No Urinary Frequency, No Hematuria, No Urinary Incontinence, No Urgency, No Flank Pain, No Urinary Flow Changes, No Hesitancy Musculoskeletal : No joint pain, No Myalgias, No Joint Swelling Skin : No Skin Lesions, No rash Neuro : No Weakness, No Numbness, No Paresthesias, No Loss of Consciousness, No Dizziness, No Headache Psych : No Anxiety/Panic, No Depression, No SI/HI/AH/VH, No Social Issues, Heme/Lymph: No Bruising, No Bleeding,No Lymphadenopathy Endocrine : No Polyuria, No Polydipsia, No Temperature Intolerance [facility] Past Medical History Medical History (Updated 12/10/24 @ 22:15 by Britni Damon MD) Diverticulitis Polyarthralgia Essential hypertension RACHELLE (generalized anxiety disorder) Fibromyalgia High cholesterol Arthritis Surgical History (Updated 08/21/24 @ 09:28 by Sarahi Lucio MD) History of total abdominal hysterectomy History of hemicolectomy Hx laparoscopic cholecystectomy History of carpal tunnel release of both wrists H/O rotator cuff surgery Hx of lumbosacral spine surgery H/O cervical spine surgery Family History Family History Mother Diabetes Hypertension Osteoporosis Father Dementia Emphysema lung Family/Other Mental health disorder Social History Social History Housing: Apartment Alcohol intake: never Patient Tobacco Use Status: Never used Tobacco e-Cigarette/Vaping Use: Never Used Second Hand Smoke Exposure: No Advance Directives: No Advance Directives Information Provided: Yes service: No Current occupational status: disabled Cognitive needs: Yes Hearing needs: No Vision needs: Yes Physical Exam ED Exam Exam: Appearance: Alert. Oriented X3. No acute distress. Eyes: Pupils equal, round and reactive to light. ENT: Pharynx normal. Moist mucous membranes Neck: Normal inspection. Neck supple. No lymph nodes noted. No crepitus CVS: Normal heart rate and rhythm. Pulses normal. Normal S1 and S2 Respiratory: No respiratory distress. Breath sounds normal. No Wheezing. No rales Abdomen: Soft , tenderness to palpation over the left lower quadrant, no rebound or guarding Skin: Skin warm and dry. Normal skin color. Normal skin turgor. Extremities: No lower extremity edema. No Lacerations. No Rash Neuro: Oriented X 3. No motor deficit. No sensory deficit. Moving all extremities. No slurred speech. CN 2 through 12 grossly intact Psych: calm, cooperative, normal affect Vital Signs: Vital Signs - 24 hr 12/10/24 15:56 12/10/24 20:11 Temperature 97.7 F 98.5 F Pulse Rate 82 63 Respiratory Rate 16 19 Blood Pressure 140/79 H 155/75 H Pulse Oximetry 98 98 Oxygen Delivery Method Room Air Room Air BMI result Body Mass Index 28.3 Course Course Course Narrative: This is a Rapid Medical Examination (RME) performed by Chantelle Goodrich PA-C in triage. Full HPI, ROS, assessment and treatment plan per primary provider in the Main ED. Hx: 59 yo F here for eval of LLQ pain and diarrhea intermittently x1 month. hx diverticulosis. has appointment w/ PCP tomorrow. Plan: labs Medical Decision Making Medical Decision Making [facility] Narrative: My interpretation of labs: No significant abnormality in patient's hematology or chemistry, magnesium 2.1 normal, LFTs normal, lipase normal Patient receiving IV fluids, morphine 2 mg and Zofran Overall, patient feeling better. CT scan does not show any acute abnormality, no diverticulitis. Patient did not provide urine sample. Patient states that she does not have any urinary symptoms Patient feels better, ready to be discharged home. Here in the emergency room, patient has not had any episodes of diarrhea Differential Diagnosis Differential Diagnoses: The differential diagnosis associated with the presentation includes (Diverticulitis, colitis) Admission/Observation Consideration of admission/observation: Escalation of care including admission/observation considered (Given patient's history and presentation, observation has been considered) Lab Data MDM Lab Attestation statement: I reviewed the patient's lab results. 12/10/24 16:05 12/10/24 16:05 Labs: Lab Results 12/10/24 Range/Units 16:05 WBC 7.1 (4.8-10.8) X10*3/uL RBC 3.65 L (4.20-5.50) X10*6/uL Hgb 11.5 L (12.0-16.0) g/dl Hct 33.4 L (37.0-47.0) % MCV 91.5 (80.0-98.0) fL MCH 31.5 (27.0-33.0) pg MCHC 34.4 (31.0-35.0) g/dl RDW 12.4 (11.0-16.0) % Plt Count 233 (160-400) X10*3/uL MPV 10.0 (9.4-12.3) fL Immature Gran % (Auto) 0.4 (0.0-0.4) % Neut % (Auto) 45.5 (45-73) % Lymph % (Auto) 42.4 H (20-40) % [place] % (Auto) 8.7 (2-11) % Eos % (Auto) 2.6 (0-4) % Baso % (Auto) 0.4 (0-2) % Lymph # (Auto) 3.0 (1.2-4.9) X10*3/uL [place] # (Auto) 0.6 (0.1-1.2) X10*3/uL Eos # (Auto) 0.2 (0.0-0.4) X10*3/uL Baso # (Auto) 0.0 (0.0-0.2) X10*3/uL Abs Immat Gran (auto) 0.03 (0.00-0.03) X10*3/uL Absolute Neuts (auto) 3.2 (2.0-8.3) x10*3/uL Absolute Nucleated RBC 0.000 (0.0-0.012) X10*3/uL Nucleated RBC % (auto) 0.0 (0.0-0.2) /100WBC Sodium 140 (135-145) mmol/L Potassium 3.8 (3.3-5.1) mmol/L Chloride 109 H (96-108) mmol/L Carbon Dioxide 24 (22-29) mmol/L Anion Gap 11 L (12-20) BUN 15 (9-16) mg/dL Creatinine 0.64 (0.5-1.4) mg/dL Estim Creat Clear Calc 85.9 Estimated GFR > 60 Random Glucose 159 H (60-115) mg/dL Calcium 9.0 (8.4-10.2) mg/dL Magnesium 2.1 (1.6-2.6) mg/dL Total Bilirubin 0.2 (0.0-1.0) mg/dL AST 19 (5-31) U/L ALT 19 (0-31) U/L Alkaline Phosphatase 85 (39-117) U/L Total Protein 7.4 (6.5-8.0) g/dL Albumin 4.6 (3.5-5.0) g/dL Lipase 18 (8-78) U/L Independent Interpretation I performed an independent interpretation of an: CT Scan Radiology Impression Discussion of test interpretation with radiology: I have reviewed the radiologist's reading. Radiologist Impression: Hiatal hernia. Right liver lobe anterior segment blush of the enhancement 1.8 x 2 cm, axial image number 21 of 92 on initial portal venous phase imaging. Prior cholecystectomy. Right renal lower pole cortical low-attenuation lesion, 0.9 cm; renal cysts. Prior distal sigmoid colon surgical anastomosis. Mild calcified atherosclerotic disease of the abdominal aorta. Hiatal hernia. Prior rectal surgical anastomosis. Diverticulosis. The appendix is not grossly identified. Prior hysterectomy. Eedo-xg-zduerunh osteopenia. Prior anterior fixation of L4/L5/S1 with pedicle screws and interlocking rods. L4 left hemilaminotomy. IMPRESSION: 1. No acute intraabdominal or pelvic findings. 2. 1.8 x 2 cm enhancing lesion in the anterior segment of the right liver lobe; probable hepatic hemangioma. Right upper quadrant ultrasound suggested. 3. Prior cholecystectomy, hysterectomy, distal sigmoid colon and rectal surgical partial resection and anastomosis. 4. Diverticulosis. 5. Prior anterior fixation of L4/L5/S1 with pedicle screws and interlocking rods. Medications Administered Discontinued Medications Generic Name Dose Route Start Last Admin Trade Name Arely PRN Reason Stop Dose Admin Lactated Ringer's 1,000 mls @ 999 mls/hr 12/10/24 20:30 12/10/24 20:58 Lr IV 12/10/24 21:30 999 mls/hr .Q1H1M STACY Administration Iohexol 85 ml 12/10/24 20:44 12/10/24 20:44 Iohexol 350 Mg/Ml 100 Ml Infus..Btl IV 12/10/24 20:45 85 ml ONCE ONE Administration Morphine Sulfate 2 mg 12/10/24 20:22 12/10/24 20:59 Morphine Sulfate 2 Mg/Ml Cartridge IVPUSH 12/10/24 20:23 2 mg ONCE ONE Administration Protocol Ondansetron HCl 4 mg 12/10/24 20:22 12/10/24 20:59 Ondansetron Hcl 4 Mg/2 Ml Vial IVPUSH 12/10/24 20:23 4 mg ONCE ONE Administration Critical Care Time Critical Care Time Critical Care Time: Yes Total Critical Care Time: 40 Attestation: I have personally provided critical care time. Time includes review of lab data, radiology results, discussion with consultants, and monitoring for potential decompensation. Intervention performed as documented. Discharge Plan Discharge Clinical Impression: Abdominal pain Patient Disposition: Home, Self-Care Instructions: Abdominal Pain (ED) Additional Instructions: Please follow-up with your primary care physician tomorrow. If you have any worsening or new symptoms, please return to the emergency room or call 911 Prescriptions: New hyoscyamine sulfate 0.125 mg tablet 0.125 mg PO QID PRN (Reason: dyspepsia) Qty: 20 0RF No Action ibuprofen 600 mg tablet 600 mg PO Q6H PRN (Reason: pain or fever) Qty: 30 0RF duloxetine [Cymbalta] 60 mg capsule,delayed release(DR/EC) 60 mg PO BID lorazepam 1 mg tablet 1 mg PO QAM atenolol 50 mg tablet 50 mg PO DAILY topiramate 100 mg tablet 100 mg PO BID lorazepam 2 mg tablet 2 mg PO BEDTIME atorvastatin 40 mg tablet 40 mg PO DAILY trazodone 150 mg tablet 150 mg PO BEDTIME omeprazole 20 mg capsule,delayed release(DR/EC) 20 mg PO DAILY buspirone 7.5 mg tablet 7.5 mg PO BID Print Language: Macanese
[2024-12-10 16:08] LABS: MANUAL DIFF FLAG NO
[2024-12-10 16:11] LABS: Hematocrit 33.4 % (37.0-47.0); Hemoglobin 11.5 g/dl (12.0-16.0); Imm Gran Abs Auto 0.03 X10*3/uL (0.00-0.03); Imm Gran Pct Auto 0.4 % (0.0-0.4); Lymphocytes Absolute Auto 3.0 X10*3/uL (1.2-4.9); Mean Corpuscular HGB Conc 34.4 g/dl (31.0-35.0); Mean Corpuscular Hemoglobin 31.5 pg (27.0-33.0); Mean Corpuscular Volume 91.5 fL (80.0-98.0); NRBC Abs Auto 0.000 X10*3/uL (0.0-0.012); NRBC Pct Auto 0.0 /100WBC (0.0-0.2); Platelet Count 233 X10*3/uL (160-400); Red Blood Count 3.65 X10*6/uL (4.20-5.50); White Blood Count 7.1 X10*3/uL (4.8-10.8)
[2024-12-10 16:26] LABS: Alanine Aminotransferase 19 U/L (0-31); Albumin Level 4.6 g/dL (3.5-5.0); Alkaline Phosphatase 85 U/L (39-117); Anion Gap 11 (12-20); Aspartate Amino Transferase 19 U/L (5-31); Blood Urea Nitrogen 15 mg/dL (9-16); Calcium 9.0 mg/dL (8.4-10.2); Carbon Dioxide 24 mmol/L (22-29); Chloride 109 mmol/L (96-108); Creatinine Clr Calc Pharmacy 85.9; Estimated Glomerular Filt Rate > 60; Lipase 18 U/L (8-78); Magnesium 2.1 mg/dL (1.6-2.6); Potassium 3.8 mmol/L (3.3-5.1); Sodium 140 mmol/L (135-145); Total Protein 7.4 g/dL (6.5-8.0)
--- OUTSIDE RECORDS SUMMARY | 2024-12-10 18:29 | XMS_ITS | Clinical Summary ---
Author Organization [address] [facility] g Address [address] [place] [address] Phone Care Team Providers Care Special Education Teaching Assistant Name Role Phone Unavailable Primary Care Provider Unavailabl e Allergies Active Allergy Reactions Criticality Noted Date Comments Oxycodone-Acetaminophen 04/01/2015 Medications DULoxetine (CYMBALTA) [address] capsule Take 1 capsule (60 mg total) by mouth. Active LORazepam (ATIVAN) 1 mg tablet TAKE 1 TABLET BY MOUTH EVERY MORNING ANXIETY 09/28/2022 Active LORazepam (ATIVAN) 2 mg tablet Take 0.5 tablets (1 mg total) by mouth. Active topiramate (TOPAMAX) 100 mg tablet TAKE 1 TABLET BY MOUTH TWICE A DAY TAKE HALF HOUR BEBORE MEALS 01/16/2024 Active traZODone (DESYREL) 150 mg tablet Take 1 tablet (150 mg total) by mouth at bedtime. 03/02/2024 Active atorvastatin (LIPITOR) 40 mg tablet TAKE 1 TABLET BY MOUTH 1 TIME EACH DAY. 90 tablet 1 09/11/2024 Active polyethylene glycol (MIRALAX) 17 gram packet MIX 1 PACKET IN LIQUID AND TAKE BY MOUTH DAILY NEEDED FOR CONSTIPATION . 28 packet 5 09/11/2024 Active omeprazole (PriLOSEC) [address] capsule TAKE 1 CAPSULE BY MOUTH 1 TIME EACH DAY. 90 capsule 1 09/11/2024 Active atenoloL (TENORMIN) 50 mg tablet TAKE 1 TABLET BY MOUTH 1 TIME EACH DAY. 90 tablet 1 09/11/2024 Active Active Problems Problem Noted Date Diagnosed Date [...] 02/13/2019 Diabetes mellitus type 2, un complicated ([facility] V24, [facility] V28) 08/04/2018 Assessment & Plan (03/07/2024 12:52 [...] 6 Depression 04/01/2015 Overview (05/25/2023): Follows with [facility] Fibromyalgia 04/01/2015 Overview (05/25/2023): [facility] Immunizations Name Administration Dates Next Due H1N1 Inj Preservative Free 01/30/2009 Influenza Quadravalent, MDCK , 0.5ml, preservative free (Flucelvax) 6mo and older 02/04/2021,12/21/2019 Influenza trivalent, recombi nant, 0.5mL, preservative free (Flublok) 9yo and older 11/13/2024 Influenza trivalent, with pr eservative (Fluzone; Afluria) [...] History Surgery Date Site/Laterality Comments CHOLECYSTECTOMY PROCEDURE: [place] LAPAROSCOPY SURG CHOLECYSTECTOMY OTHER SURGICAL HISTORY PROCEDURE: DECOMPRESS DISC RF LUMBAR; COMMENT: 2014 ROTATOR CUFF REPAIR Right PROCEDURE: HISTORICAL ROTATOR CUFF REPAIR CARPAL TUNNEL RELEASE Bilateral PROCEDURE: [place] NEUROPLASTY &/TRANSPOS MEDIAN NRV CARPAL TUNNE OTHER SURGICAL HISTORY PROCEDURE: [place] ARTHRODESIS POSTERIOR INTERBODY 1 NTRSPC LUMBAR; COMMENT: [...] Record ed Within the last 3 months, jose carlos gaming many times did you visit the emergency [...] care for your loved ones. For example, child day care teacher or elderly care for an older adult? [...] Health Maintenance Due Date Last Done Comments HIV Screening 02/27/2022 Medicare Annual Wellness Visit 02/27/2022 Diabetes: Annual Urine Albumin-Creatinine Ratio (uACR) 08/06/2023 08/05/2022 Pneumococcal Vaccine: 50+ Years (3 of 3 - PCV20 or PCV21) 02/14/2024 02/13/2019, 11/28/2010 Diabetes: Blood Sugar Control Test (HGBA1C) 07/18/2024 01/19/2024, 10/24/2023, 05/20/2023 COVID-19 Vaccine ( season) 2024 02/21/2021, 05/19/2020, 04/28/2020 Diabetes: Annual Retina Eye Exam 11/29/2024 11/30/2023, 09/10/2022 Diabetes: Annual GFR (Glomerular Filtration Rate) 01/18/2025 01/19/2024, 10/24/2023, 08/02/2023 Hypertension/CHF/CAD Annual BMP Blood Test 01/18/2025 01/19/2024, 10/24/2023, 08/02/2023 Diabetes: Annual Foot Exam 03/07/2025 03/07/2024, Social Influencers of Health Screening 03/23/2025 03/23/2024, 05/23/2023 Breast Cancer Screening 08/20/2026 08/21/19 25, 08/04/2023, [...] topic Zoster Vaccines Completed 09/02/2021, 05/19, 11/15/2007 Depression Screening Completed 05/29/2024 Influenza Vaccine Completed 11/13/2024, , 01/26/2022, Additional history exists HIB Vaccines Aged Out No longer eligi ble based on patient's age to complete this topic HPV Vaccines Aged Out No longer eligi ble based on patient's age to complete this topic Hepatitis A Vaccines Aged Out No long er eligible based on patient's age to complete this topic Hepatitis B Vaccines Aged Out No long er eligible [...] is recommended in 1 year. Mammo Location: [facility], [address] [place] [address], [id number], . -------- FINAL REPORT -------- Dictated By: Shae Donnelly Dictated Date: 08/20/2024 14:49 ET Assigned Physician: Shae Donnelly Reviewed and Electronically Signed By: Shae Donnelly Signed Date: 08/20/2024 15:02 ET Workstation ID: [id number] Transcribed By: Self Edit Transcribed Date: 08/20/2024 [...] is recommended in 1 year. Mammo Location: [facility], [address] [place] [address], [id number], . -------- FINAL REPORT -------- Dictated By: Shae Donnelly Dictated Date: 08/20/2024 14:49 ET Assigned Physician: Shae Donnelly Reviewed and Electronically Signed By: Shae Donnelly Signed Date: 08/20/2024 15:02 ET Workstation ID: [id number] Transcribed By: Self Edit Transcribed Date: 08/20/2024 14:53 ET Result [facility] Constanza Reddy MD IMG BI PROCEDURES Final Result * Hemoglobin A1c (05/20/2023) Pathologist [facility] Hemoglobin A1C 6.4 % Blood Venous blood specimen / Unknown Result [facility] Provider LAB BLOOD ORDERABLES Cony l Result * Urine Albumin Creatinine Ratio (08/05/2022) Pathologist [facility] Urine Albumin Creatinine Ratio <12.1 Result [facility] Provider HEALTH MAINTENANCE Final Result * Lipid panel (08/05/2022) Pathologist [facility] LDL/HDL Ratio 4 Triglycerides 256 mg/dL Cholesterol 145 mg/dL HDL 40 mg/dL LDL Cholesterol 54 mg/dL Blood Venous blood specimen / Unknown Result [facility] Provider LAB BLOOD ORDERABLES Cony l Result * Colonoscopy (12/19/2017) Pathologist [facility] Colonoscopy patient reported Anatomical Region Laterality Modality Other Result [facility] Provider HEALTH MAINTENANCE Final Result from Last 3 Months or Most Recently Relevant to Health Maintenance Insurance [employer] MEDICARE Member Subscriber Plan / Payer (Ef fective 2012-Present) Name:CHRISTINA LOU Relation to Subscriber:Self Name:Christina Lou Payer ID:[id number] Group ID:[id number] Type:Not on file Address: [address] [place] [address]
--- OUTSIDE RECORDS SUMMARY | 2024-12-10 18:30 | XMS_ITS | Clinical Summary ---
Author Organization [facility], Address [address] [place] [address] Phone Care Team Providers Care [employer] Name Role Phone Lesli Elizondo MD Primary Care Provider [phone] Social History Tobacco Use Types Packs/Day Years [...] Last Done Comments Breast Cancer Screening 1964 Colorectal Cancer Screening: Annual FOBT 2013 Colorectal [...] Patients (6 to 49 Years) Discontinued 02/13/2019 Hepatitis B Vaccine Aged Out No longe r eligible based on patient's age to complete this topic Insurance [address] [place] [address] [facility] [address] [place] [id number] Care Teams [employer] Relationship Specialty Start Date End Date Lesli Elizondo MD [address] [place] [address] PCP - General Internal Medicine 09/25/19
--- OUTSIDE RECORDS SUMMARY | 2024-12-10 18:30 | XMS_ITS | Clinical Summary ---
Author Organization [facility] Address [address] [place] [address] Care Team Providers Care Civil Rights Representative Name Role Phone Lesli Gomez MD Primary Care Provider [phone] Social History Tobacco Use Types Packs/Day Years Used Date Smoking Tobacco: Never Assessed Sex and Gender Information Value Date Recorded Sex Assigned at Not on file Gender Identity Not on file Sexual Orientation Not on file Job Start Date Occupation Industry Not on file Not on file Not on file Plan of Treatment Health Maintenance Due Date Last Done Comments Hepatitis C Screening 1964 Depression Screening 1976 Preventative Health Evaluation 1982 Cervical Cancer Screening (Pap Smear) 1985 Colon Cancer Screening (Colonoscopy) 2009 Breast Cancer Screening (Mammogram) 2014 Shingrix-Zoster Vaccine (1 o f 2) 2014 COVID-19 Vaccine (3 - 2024-2 6 season) 2024 05/19/2020, 04/28/2020 Influenza Vaccine (#1) 2024 DTap / Tdap / Td (2 - Td or Tdap) 02/13/2029 02/13/2019 RSV Adult > 60+ Yrs or (1 - 1-dose 75+ series) 10/29/2039 Pneumococcal Vaccine Aged Out 02/13/2019 No long er eligible based on patient's age to complete this topic Hepatitis B Vaccines Aged Out No long er eligible based on patient's age to complete this topic RSV Ped < 20 months Aged Out No longe r eligible based on patient's age to complete this topic Care Teams Civil Rights Representative Relationship Specialty Start Date End Date Lesli Gomez MD PCP - General Internal Medicine 09/05/19
[2024-12-10 20:11] VITALS: BP 155/75; PULSE 63; RESP 19; TEMP 36.9; O2SAT 98
[2024-12-10] MEDS: iohexoL 350 MG/ML 100 ML INFUS..BTL 85 ML IV (20:44)
[2024-12-10] MEDS: Lactated Ringers 1,000 ML 999 ML IV (20:58)
--- NOTE | 2024-12-10 21:01 | PC.NURSE ---
Iv started, medicated per mar.
[2024-12-10 22:21] VITALS: BP 126/63; PULSE 70; RESP 19; TEMP 36.6; O2SAT 97
[2024-12-10 23:30] VITALS: BP 126/63; PULSE 70; RESP 19; TEMP 36.6; O2SAT 97
--- NOTE | 2024-12-10 23:30 | PC.NURSE ---
iv removed, reviewed discharge instructions with pt. pt verbalized understanding, no sign of distress.
== END 2024-12-10 23:31 | disposition home or self-care (01) ==
PROVIDERS: Physician Assistant Medical; Emergency Provider Emergency Medicine; PCP Internal Medicine
DX: R10.32 Left lower quadrant pain (principal); R19.7 Diarrhea, unspecified
CPT/HCPCS: 36415; 74177; 80053; 83690; 83735; 85025; 96361; 96374; 96375; 99284; 99285; J2270; J2405; J7120; Q9967

== ENCOUNTER → 2024-12-10 20:22 | Outpatient (BNV) | payer OTHER, SELFPAY | PROVIDERS: Emergency Provider Emergency Medicine; PCP Internal Medicine; Visit Provider Radiology Diagnostic Radiology | DX: K57.30 Diverticulosis of large intestine without perforation or abscess without bleeding (principal); R10.32 Left lower quadrant pain | CPT/HCPCS: 74177 ==

== ENCOUNTER 2024-12-27 10:02 | Outpatient (AMB) | payer OTHER, SELFPAY ==
--- NOTE | 2024-12-27 10:08 | A.OFFPC_ITS ---
Vital Signs 12/27/24 10:09 Height 5 ft 2 in Weight 164 lb 2 oz BMI 30.0 BP 110/66 Blood Pressure Location Lt brachial Position Sitting Pulse 75 Pulse Source Pulse Oximeter Temp 97.1 F Temp Source Temporal Artery Scan Pulse Oximetry (%) 96 Oxygen Delivery Method Room Air Intake Visit Reasons: pe Intake Note: Patient is here today for a physical. Agitator Operator Required: No Silviculture Teacher: Not Required per policy Accompanied by: Self / Same As Patient Allergies acetaminophen (From PERCOCET) Allergy (Intermediate, Verified 12/27/24 10:34) VOMITING oxycodone (From PERCOCET) Allergy (Intermediate, Verified 12/27/24 10:34) VOMITING trazodone (TRAZODONE) Allergy (Unknown, Verified 12/27/24 10:34) UNKNOWN, jaw locking Medication List - Last Reconciled 12/27/24 by Sarahi Lucio MD atenolol 50 mg PO DAILY atorvastatin 40 mg PO DAILY duloxetine (Cymbalta) 60 mg PO BID hyoscyamine sulfate 0.125 mg PO QID PRN ibuprofen 600 mg PO Q6H PRN lorazepam 1 mg PO QAM lorazepam 2 mg PO BEDTIME omeprazole 20 mg PO DAILY trazodone 150 mg PO BEDTIME Tobacco use date assessed: 12/27/24 Dental Screening Dental Screen Date: 08/21/24 HPI HPI Comments History of Present Illness Details The patient is a 59-year-old female presenting for a wellness visit and management of chronic conditions. She has a history of hypertension, which is currently managed with atenolol 50 mg, and hyperlipidemia managed with atorvastatin 40 mg. Her blood pressure is reported to be excellent, and her cholesterol levels were noted to be very good in August. The patient underwent a colonoscopy last year, which revealed diverticulosis, a common finding. She also has a benign hemangioma of the liver, which requires monitoring but poses no immediate risk. Her preventative care includes recent influenza and pneumococcal vaccinations, as well as a mammography performed this year. She has not yet received a bone density scan, which is planned to assess for osteopenia or osteoporosis. [facility] Medical History (Updated 12/27/24 @ 10:52 by Sarahi Lucio MD) Impaired glucose tolerance Diverticulitis Polyarthralgia Essential hypertension RACHELLE (generalized anxiety disorder) Fibromyalgia High cholesterol Arthritis Surgical History History of total abdominal hysterectomy History of hemicolectomy Hx laparoscopic cholecystectomy History of carpal tunnel release of both wrists H/O rotator cuff surgery Hx of lumbosacral spine surgery H/O cervical spine surgery Family History Mother Diabetes Hypertension Osteoporosis Father Dementia Emphysema lung Family/Other Mental health disorder Social History Housing: Apartment Alcohol intake: never Patient Tobacco Use Status: Never used Tobacco e-Cigarette/Vaping Use: Never Used Second Hand Smoke Exposure: No service: No Current occupational status: disabled Cognitive needs: Yes Hearing needs: No Vision needs: Yes Questionnaire Thrive Questionnaire Date Thrive assessed: 08/15/24 I am a: Patient What is your living situation today?: I have a steady place to live Within the past 12 months, did the food you bought not last and you didn't have the money to get more?: Never true Within the past 12 months, did you worry whether your food would run out before you got money to buy more?: Never true Do you have trouble paying for medicines?: No Do you have trouble getting transportation to medical appointments?: No Do you have trouble paying your heating and electricity bill?: No Do you have trouble taking care of your child, family member or friend?: No Do you have trouble with day-to-day activities such as bathing, preparing meals, shopping, managing finances, etc.?: Yes Are you currently unemployed and looking for a job?: No Are you interested in more education?: No Please select the resources that you would like help with: None Currently or been in a relationship where the following occur: No concerns reported THRIVE Score: 0 RACHELLE-7 AMB Questionnaire RACHELLE-7 Date RACHELLE - 7 assessed: 08/21/24 Source: Developed by Drs. Dmitry Lynn, Rivka Urrutia, Lupillo Gutierrez and colleagues, with an educational raine from [employer] Review of Systems Const All systems reviewed & are unremarkable except as noted in HPI and below Card Denies chest pain at rest, Denies chest pain with activity, Denies edema, Denies irregular heart rhythm, Denies claudication, Denies dyspnea, Denies dyspnea on exertion, Denies orthopnea, Denies paroxysmal nocturnal dyspnea and Denies slow heart rate Resp Denies cough, Denies dyspnea and Denies dyspnea on exertion Physical exam (Primary Care) Vital Signs: Last Vital Signs Temp 97.1 F 12/27/24 10:09 Pulse 75 12/27/24 10:09 BP 110/66 12/27/24 10:09 Pulse Ox 96 12/27/24 10:09 Oxygen Delivery Method Room Air 12/27/24 10:09 BMI result Body Mass Index 30.0 Tobacco/Smoking Status: Tobacco use Status Tobacco use date assessed 12/27/24 12/27/24 10:14 Patient Tobacco Use Status Never used Tobacco 12/27/24 10:14 e-Cigarette/Vaping Use Never Used 12/27/24 10:14 Thrive Assessment: Date of Thrive Assessment Date Thrive assessed 08/15/24 12/27/24 10:14 Currently or been in a relationship where the following occur: No concerns reported [facility] Head: Yes normal to inspection, Yes normocephalic and Yes atraumatic Ears: external ears normal Eyes General: appearance normal, both eyes and all related structures Eyelids: Yes eyelids normal Conjunctivae: conjunctivae normal Neck Neck: Yes normal visual inspection and Yes supple Resp Effort & Inspection: normal respiratory effort Auscultation: clear to auscultation bilaterally Cardio Jugular venous distension: no JVD Rate: regular rate Rhythm: regular rhythm Heart sounds: S1 normal heart sound present and S2 normal heart sound present GI Inspection: Yes normal to inspection Palpation (GI): Soft to palpation and nontender Auscultation: normal bowel sounds Skin General skin exam: no rashes or lesions noted Neuro General: no focal motor deficits Extrem General: Yes full ROM Psych Appearance: grossly normal Results AMB Hemoglobin A1c AMB Hemoglobin A1c 6.5 % Last Edit by HECTOR Beasley on 12/27/24 11 :18 Immunizations pneumoc 20-lidia conj-dip cr(PF) 0.5 mL IM syringe Performing Provider: Sarahi Lucio MD [facility] Administered by: HECTOR Beasley on 12/27/24 10:54 Dose Route Admin Location Dispensed Lot Number Expiration Date [facility] [place] [employer] 0.5 mL IM Left Deltoid 0.5 mL [id number] 11/19/25 [employer] /[employer] Total Dispensed Waste 0.5 mL 0 % VIS Given Date VIS Provided VIS Publication Date 12/27/24 Single Vaccine 24 Eligibility Eligibility Date Funding Source Not [facility] Eligible 12/27/24 Private Results Reviewed Results Reviewed: Laboratory Last Values Hgb A1c (Clinic) 6.5 % (4.0-6.0) H 12/27/24 10:49 Coding Level of Care Code Est Pt Level 3 (67769) Est Pt Prev Care 40-64y(51447) Diagnoses Physical exam Z00.00 Diabetes mellitus E11.9 Renal cyst N28.1 Osteopenia M85.80 Time Spent (min) 32 Assessment & Plan Assessment & Plan (1) Physical exam: Code(s): Z00.00 - Encounter for general adult medical examination without abnormal findings Category: Medical (2) Diabetes mellitus: Code(s): E11.9 - Type 2 diabetes mellitus without complications Category: Medical (3) Renal cyst: Code(s): N28.1 - Cyst of kidney, acquired Category: Medical (4) Osteopenia: Code(s): M85.80 - Other specified disorders of bone density and structure, unspecified site Category: Medical Plan Plan Patient was informed and verbally consented to the use of an ambient scribe for clinic note documentation during this visit. 1. Physical Exam Repeat in a year 2. Osteopenia A bone density scan is planned to assess for osteopenia or osteoporosis. 3. Diabetes mellitus Keep A1c within goal is less than 7 %. Controlled with diet. 4. Renal Cyst Order US renal. Orders: Orders Microalbumin, Random (w Creat) 4 Months R80.9 - Proteinuria, unspecified Vitamin D 25-OH Total 4 Months E55.9 - Vitamin D deficiency, unspecified Pneumococcal 20 Immunization Today Z23 - Encounter for immunization AMB Hemoglobin A1c Today Z13.9 - Encounter for screening, unspecified US renal BI Today N28.1 - Cyst of kidney, acquired XR DEXA axial skeleton Today Z78.0 - Asymptomatic menopausal state Lipid Panel 4 Months E78.5 - Hyperlipidemia, unspecified Comprehensive [place]. Panel Fast 4 Months I10 - Essential (primary) hypertension
[2024-12-27 10:09] VITALS: BP 110/66; PULSE 75; TEMP 36.2; O2SAT 96
== END 2024-12-27 10:57 | disposition home or self-care (01) ==
LOC: HO.HMCH 10:03
PROVIDERS: PCP Internal Medicine; Visit Provider Internal Medicine
DX: Z00.00 Encounter for general adult medical examination without abnormal findings (principal); E11.9 Type 2 diabetes mellitus without complications; N28.1 Cyst of kidney, acquired; M85.80 Other specified disorders of bone density and structure, unspecified site; Z23 Encounter for immunization

== ENCOUNTER → 2024-12-27 10:02 | Outpatient (BNVA) | payer OTHER, SELFPAY | PROVIDERS: PCP Internal Medicine; Visit Provider Internal Medicine | DX: Z00.00 Encounter for general adult medical examination without abnormal findings (principal); I10 Essential (primary) hypertension; E78.5 Hyperlipidemia, unspecified; E11.9 Type 2 diabetes mellitus without complications; N28.1 Cyst of kidney, acquired; M85.80 Other specified disorders of bone density and structure, unspecified site; R80.9 Proteinuria, unspecified; E55.9 Vitamin D deficiency, unspecified; Z78.0 Asymptomatic menopausal state; Z23 Encounter for immunization | CPT/HCPCS: 83036; 90471; 90677; 99212; 99396 ==

== ENCOUNTER 2025-01-31 08:50 | Outpatient (REF) | payer OTHER, SELFPAY ==
--- NOTE | ~2025-01-31 | MM_ITS ---
EXAMINATION: DXA BONE DENSITY AXIAL HISTORY: Z78.0 - Asymptomatic menopausal state TECHNIQUE: [place] Dual energy absorptiometry (DEXA) of the lumbar spine, total left hip, and femoral neck was performed. COMPARISON: None. FINDINGS: The bone mineral density of the lumbar spine is 1.097 g/cm2, corresponding to a T-score of -0.6, and a Z-score of 0.3. This is indicative of normal bone mineral density. The bone mineral density of the left total hip is 0.961 g/cm2, corresponding to a T-score of -0.4, and a Z-score of 0.3. This is indicative of normal bone mineral density. The bone mineral density of the left femoral neck is 0.860 g/cm2, corresponding to a T-score of -1.3, and a Z-score of 0.3. This is indicative of osteopenia. FRACTURE RISK: The FRAX index suggests a ten year probability of major osteoporotic fracture of 8%, and of hip fracture 0.3%. MM/XR DEXA axial skeleton IMPRESSION: Based on bone mineral density, and according to World Health Organization (WHO) criteria, the diagnosis is consistent with osteopenia based on lowest T score of -1.3 in the left femoral neck. Statistically, 68% of repeat scans fall within 1 SD (+/- 0.010 g/cm2 for AP spine L1-L4) and 1 SD (+/- 0.012 g/cm2 for femur total) FRAX is a trademark of the [employer] [place] for Metabolic Bone Disease, a World Health Organization (WHO) Collaborating Center. Electronically signed by: Cat Marti MD 01/31/2025 09:56 AM EST
== END 2025-01-31 08:51 | disposition home or self-care (01) ==
LOC: HO.MAMMO 08:50
PROVIDERS: PCP Internal Medicine; Visit Provider Internal Medicine
DX: Z13.820 Encounter for screening for osteoporosis (principal); Z78.0 Asymptomatic menopausal state
CPT/HCPCS: 77080

== ENCOUNTER → 2025-01-31 09:15 | Outpatient (BNV) | payer OTHER, SELFPAY | PROVIDERS: PCP Internal Medicine; Visit Provider Radiology Diagnostic Radiology | DX: E28.39 Other primary ovarian failure (principal) | CPT/HCPCS: 77080 ==

== ENCOUNTER 2025-02-15 18:13 | Emergency (ER) | payer OTHER, SELFPAY ==
--- NOTE | ~2025-02-15 | XR_ITS ---
CLINICAL HISTORY: pain, injury 5 view left shoulder Comparison: None provided Findings: Bones intact. No dislocations. No significant loss of joint space or osteophytes. No erosions. No radiopaque foreign body. Abutting the humeral greater tuberosity mineralization, 0.9 x 0.4 cm; calcific tendinosis of the supraspinatus suspected. IMPRESSION: 1. No acute findings This document has been electronically signed by: Rohit Guthrie MD on 02/15/2025 19:41:36
[2025-02-15 18:18] VITALS: BP 120/77; PULSE 88; RESP 20; TEMP 37; O2SAT 98; BMI 29.9
--- NOTE | 2025-02-15 18:20 | ED.GENADULT ---
HPI - General Adult General Chief complaint: Extremity Injury, Upper Stated complaint: General Medical Time Seen by Provider: 02/15/25 18:47 Source: patient Mode of arrival: ambulatory Limitations: no limitations History of Present Illness ED Provider: Dr. Ayala HPI narrative: 59-year-old female history of hypertension, diabetes, rotator cuff injury on the right shoulder status post surgery presented hospital today for evaluation of left shoulder pain. Patient stated this started all of a sudden today. Patient has difficulty moving her shoulder. The pain is located in the superior part of her left shoulder. The patient does have history of rotator cuff surgery in the right shoulder. She has no history of pain in his left shoulder. Denies any trauma. Related Data Home Medications ?Medication ?Instructions ?Recorded ?Confirmed atenolol 50 mg tablet 50 mg PO DAILY 08/21/24 12/27/24 atorvastatin 40 mg tablet 40 mg PO DAILY 08/21/24 12/27/24 duloxetine 60 mg capsule,delayed 60 mg PO BID 08/21/24 12/27/24 release (Cymbalta) lorazepam 1 mg tablet 1 mg PO QAM 08/21/24 12/27/24 lorazepam 2 mg tablet 2 mg PO BEDTIME 08/21/24 12/27/24 omeprazole 20 mg capsule,delayed 20 mg PO DAILY 08/21/24 12/27/24 release trazodone 150 mg tablet 150 mg PO BEDTIME 08/21/24 12/27/24 Previous Rx's ?Medication ?Instructions ?Recorded ibuprofen 600 mg tablet 600 mg PO Q6H PRN pain or fever 03/24/24 #30 tabs hyoscyamine sulfate 0.125 mg tablet 0.125 mg PO QID PRN dyspepsia #20 12/10/24 tabs metformin 500 mg tablet 500 mg PO BID 90 days #180 tabs 01/28/25 acetaminophen 500 mg tablet 1,000 mg (2 x 500 mg) PO Q8H 10 02/15/25 days #60 tabs ibuprofen 400 mg tablet 400 mg PO Q8H PRN pain #30 tabs 02/15/25 lidocaine 4 % topical patch 1 patch topical DAILY PRN pain #10 02/15/25 ea prednisone 20 mg tablet 20 mg PO DAILY 7 days #7 tabs 02/15/25 Allergies Allergy/AdvReac Type Severity Reaction Status Date / Time acetaminophen (From PERCOCET) Allergy Intermediate VOMITING Verified 02/15/25 18:19 oxycodone (From PERCOCET) Allergy Intermediate VOMITING Verified 02/15/25 18:19 Review of Systems Review of Systems: Pertinent review of systems as mentioned in HPI. All other system otherwise negative. [facility] Past Medical History [facility] Narrative: Medical history as mentioned in HPI Medical History (Updated 02/15/25 @ 19:57 by Stephanie Ayala DO) Impaired glucose tolerance Diverticulitis Polyarthralgia Essential hypertension RACHELLE (generalized anxiety disorder) Fibromyalgia High cholesterol Arthritis Surgical History History of total abdominal hysterectomy History of hemicolectomy Hx laparoscopic cholecystectomy History of carpal tunnel release of both wrists H/O rotator cuff surgery Hx of lumbosacral spine surgery H/O cervical spine surgery Family History Family History Mother Diabetes Hypertension Osteoporosis Father Dementia Emphysema lung Family/Other Mental health disorder Social History Social History Housing: Apartment Unable to assess alcohol history related to: Unknown Alcohol intake: never Patient Tobacco Use Status: Never used Tobacco e-Cigarette/Vaping Use: Never Used Second Hand Smoke Exposure: No Use of substances other than those prescribed or required for medical reasons: Unknown Advance Directives: No Advance Directives Information Provided: No Patient : No service: No Current occupational status: disabled Cognitive needs: Yes Hearing needs: No Vision needs: Yes Physical Exam ED Exam Exam: General: Pleasant, no distress, interacting appropriately Head: Normacephalic, atraumatic ENT: oral mucosa moist, neck supple, no tracheal deviation Extremities: Pain on the superior part of the left shoulder, positive Palacios sign, CMS intact of the left upper extremity Skin: Warm and dry Psychiatric: Appropriate mood and thoughts Vital Signs: Vital Signs - 24 hr 02/15/25 18:18 Temperature 98.6 F Pulse Rate 88 Respiratory Rate 20 Blood Pressure 120/77 Pulse Oximetry 98 Oxygen Delivery Method Room Air BMI result Body Mass Index 29.9 Course Course Course Narrative: Rapid medical examination performed in triage by Claudia Barry PA-C: Patient is a 59 year old assigned female at presenting to the emergency department with left shoulder pain. Detailed physical exam and review of systems are deferred to the rn primary care. Imaging ordered. Patient placed back in the waiting room pending room availability and results. Medications Administered Discontinued Medications Generic Name Dose Route Start Last Admin Trade Name Arely PRN Reason Stop Dose Admin Ketorolac Tromethamine 30 mg 02/15/25 19:03 02/15/25 19:09 Ketorolac Tromethamine 30 Mg/Ml Vial IM 02/15/25 19:04 30 mg ONCE ONE Administration Lidocaine 1 patch 02/15/25 19:03 02/15/25 19:09 Lidocaine 4 % Patch Adh..Patch TRANSDERMA 02/15/25 19:04 1 patch ONCE ONE Administration Protocol Prednisone 20 mg 02/15/25 19:03 02/15/25 19:08 Prednisone 20 Mg Tablet PO 02/15/25 19:04 20 mg ONCE ONE Administration Medical Decision Making Medical Decision Making MDM Narrative: 59-year-old female history of hypertension, diabetes presented hospital today for evaluation of left shoulder pain that started all of a sudden today. The patient's shoulder is worsened when she moves it. I suspect this is musculoskeletal in nature. Patient does have positive Palacios sign. This may also be rotator cuff injury for the supraspinatus. We will plan to give patient IM Toradol shot, lidocaine patch and a dose of prednisone here. Pending results of the shoulder x-ray at this time on my review of the x-ray there is no signs of fracture or dislocation. Patient's x-ray showed calcification in the supraspinatus tendon. No acute fracture no dislocation. We will plan to discharge patient with Tylenol ibuprofen and prednisone to take. Suspect this is likely bursitis or tendonitis. Physiatry and physical therapy referral will be given to the patient. Patient will be discharged. Differential Diagnosis Differential Diagnoses: The differential diagnosis associated with the presentation includes Rotator cuff, bursitis, arthritis Independent Interpretation I performed an independent interpretation of an: Plain X-Ray Radiology Impression Discussion of test interpretation with radiology: I have reviewed the radiologist's reading. Discharge Plan Discharge Clinical Impression: Bursitis, subacromial Qualifiers: Laterality: left Qualified Code(s): M75.52 - Bursitis of left shoulder Patient Disposition: Home, Self-Care Instructions: Shoulder Bursitis (ED) Prescriptions: New acetaminophen 500 mg tablet 1,000 mg PO Q8H 10 Days Qty: 60 0RF prednisone 20 mg tablet 20 mg PO DAILY 7 Days Qty: 7 0RF ibuprofen 400 mg tablet 400 mg PO Q8H PRN (Reason: pain) Qty: 30 0RF lidocaine 4 % adhesive patch,medicated 1 patch topical DAILY PRN (Reason: pain) Qty: 10 0RF No Action metformin 500 mg tablet 500 mg PO BID 90 Days Qty: 180 2RF ibuprofen 600 mg tablet 600 mg PO Q6H PRN (Reason: pain or fever) Qty: 30 0RF hyoscyamine sulfate 0.125 mg tablet 0.125 mg PO QID PRN (Reason: dyspepsia) Qty: 20 0RF duloxetine [Cymbalta] 60 mg capsule,delayed release(DR/EC) 60 mg PO BID lorazepam 1 mg tablet 1 mg PO QAM atenolol 50 mg tablet 50 mg PO DAILY lorazepam 2 mg tablet 2 mg PO BEDTIME atorvastatin 40 mg tablet 40 mg PO DAILY trazodone 150 mg tablet 150 mg PO BEDTIME omeprazole 20 mg capsule,delayed release(DR/EC) 20 mg PO DAILY Referrals: [facility] [Provider Group, Physiatry] Physical Therapy - [facility] [Outside] Print Language: Swedish
--- OUTSIDE RECORDS SUMMARY | 2025-02-15 18:33 | XMS_ITS | Clinical Summary ---
Author Organization [address] [facility] g Address [address] [place] [address] Phone Care Team Providers Care Electric Wirer Name Role Phone Unavailable Primary Care Provider [...] 02/13/2019 Diabetes mellitus type 2, un complicated ([facility] V24, [facility] V28) 08/04/2018 Assessment & Plan (03/07/2024 [...] 6 Depression 04/01/2015 Overview (05/25/2023): Follows with [facility] Fibromyalgia 04/01/2015 Overview (05/25/2023): [facility] Immunizations Immunization Administration Dates Next Due H1N1 Inj Preservative [...] History Surgery Date Site/Laterality Comments CHOLECYSTECTOMY PROCEDURE: [place] LAPAROSCOPY SURG CHOLECYSTECTOMY OTHER SURGICAL HISTORY PROCEDURE: DECOMPRESS DISC RF LUMBAR; COMMENT: 2014 ROTATOR CUFF REPAIR Right PROCEDURE: HISTORICAL ROTATOR CUFF REPAIR CARPAL TUNNEL RELEASE Bilateral PROCEDURE: [place] NEUROPLASTY &/TRANSPOS MEDIAN NRV CARPAL TUNNE OTHER SURGICAL HISTORY PROCEDURE: [place] ARTHRODESIS POSTERIOR INTERBODY 1 NTRSPC LUMBAR; COMMENT: [...] for your loved ones. For example, child care worker or elderly care for an older adult? [...] Date Recorded What is your living situation? Unrecognized valu e 03/23/2024 Comments No Sex and Gender Information [...] for breast cancer HEMOGLOBIN A1C Routine 05/20/2023 URINE ALBUMIN CREATININE RATIO Routine 08/05/2022 LIPID PANEL Routine 08/05/2022 COLONOSCOPY Routine 12/19/2017 from Last 3 Months or Most Recently Relevant to Health Maintenance Results * MG Mammo Digital Screening w Florentino bilat (08/20/2024 9:40 AM EDT) Anatomical Region Laterality Modality Breast Bilateral Mammography 08/20/2024 2:49 PM EDT Impressions 08/20/2024 3:02 PM EDT Benign. BI-RADS CATEGORY: 1 - NEGATIVE RECOMMENDATION: Screening bilateral mammogram is recommended in 1 year. Mammo Location: [facility], [address] [place] [address], [id number], . -------- FINAL REPORT -------- Dictated By: Shae Donnelly Dictated Date: 08/20/2024 14:49 ET Assigned Physician: Shae Donnelly Reviewed and Electronically Signed By: Shae Donnelly Signed Date: 08/20/2024 15:02 ET Workstation ID: [id number] Transcribed By: Self Edit Transcribed Date: 08/20/2024 [...] is recommended in 1 year. Mammo Location: [facility], [address] [place] [address], [id number], . -------- FINAL REPORT -------- Dictated By: Shae Donnelly Dictated Date: 08/20/2024 14:49 ET Assigned Physician: Shae Donnelly Reviewed and Electronically Signed By: Shae Donnelly Signed Date: 08/20/2024 15:02 ET Workstation ID: [id number] Transcribed By: Self Edit Transcribed Date: 08/20/2024 14:53 ET Constanza Reddy MD IMG BI PROCEDURES Final Result * Hemoglobin A1c (05/20/2023) Pathologist [facility] Hemoglobin A1C 6.4 % Blood Venous blood specimen / Unknown Result [facility] Provider LAB BLOOD ORDERABLES Cony l Result * Urine Albumin Creatinine Ratio (08/05/2022) Pathologist [facility] Urine Albumin Creatinine Ratio <12.1 Result [facility] Historical Provider HEALTH MAINTENANCE Final Result * Lipid panel (08/05/2022) Pathologist [facility] LDL/HDL Ratio 4 Triglycerides 256 mg/dL Cholesterol 145 mg/dL HDL 40 mg/dL LDL Cholesterol 54 mg/dL Blood Venous blood specimen / Unknown Result [facility] Historical Provider LAB BLOOD ORDERABLES Cony l Result * Colonoscopy (12/19/2017) Pathologist [facility] Colonoscopy patient reported Anatomical Region Laterality Modality Other us Historical Provider HEALTH MAINTENANCE Final Result from Last 3 Months or Most Recently Relevant to Health Maintenance Insurance [facility] MEDIC[facility] Member Subscriber Plan / Payer (Ef fective 2012-Present) Name:CHRISTINA LOU Relation to Subscriber:Self Name:Christina Lou Payer ID:[id number] Group ID:[id number] Type:Not on file Address: [address] [place] [id number]
--- OUTSIDE RECORDS SUMMARY | 2025-02-15 18:33 | XMS_ITS | Clinical Summary ---
Author Organization [facility], Address [address] [place] [address] Phone Care Team Providers Care Software Computer Specialist Name Role Phone Lesli Elizondo MD Primary Care Provider [phone] Social History Tobacco Use Types Packs/Day Years [...] age to complete this topic Insurance [address] [place] [address] [facility] [address] [place] [id number] Care Teams Software Computer Specialist Relationship Specialty Start Date End Date Lesli Elizondo MD [address] [place] [address] PCP - General Internal Medicine 09/25/19
--- OUTSIDE RECORDS SUMMARY | 2025-02-15 18:33 | XMS_ITS | Clinical Summary ---
Author Organization [facility] Address [address] [place] [address] Care Team Providers Care Memorial Counselor Name Role Phone Lesli Gomez MD Primary Care Provider [phone] Social History Tobacco Use Types Packs/Day Years [...] age to complete this topic Care Teams Memorial Counselor Relationship Specialty Start Date End Date Lesli Gomez MD PCP - General Internal Medicine 09/05/19
[2025-02-15] MEDS: Lidocaine 4 % Patch ADH..PATCH 1 PATCH TRANSDERMA (19:09)
[2025-02-15 20:17] VITALS: BP 104/72; PULSE 80; RESP 16; TEMP 36.8; O2SAT 95
[2025-02-15 20:24] VITALS: BP 0/0; PULSE 0; RESP 20; TEMP -17.7; TEMP 0; O2SAT 0
== END 2025-02-15 20:27 | disposition home or self-care (01) ==
PROVIDERS: Emergency Provider Student in an Organized Health Care Education/Training Program
DX: M75.52 Bursitis of left shoulder (principal); M25.512 Pain in left shoulder; Z79.899 Other long term (current) drug therapy
CPT/HCPCS: 73030; 96372; 99284; J1885

== ENCOUNTER → 2025-02-15 18:21 | Outpatient (BNV) | payer OTHER, SELFPAY | PROVIDERS: Emergency Provider Student in an Organized Health Care Education/Training Program; Visit Provider Radiology Diagnostic Radiology | DX: S49.92XA Unspecified injury of left shoulder and upper arm, initial encounter (principal) | CPT/HCPCS: 73030 ==

== ENCOUNTER 2025-02-21 13:00 | Outpatient (REF) | payer OTHER, SELFPAY ==
--- NOTE | ~2025-02-21 | US_ITS ---
CLINICAL HISTORY: N28.1 - Cyst of kidney, acquired US kidneys Comparison: None Findings: Right kidney normal size and echotexture, 11.0 cm length. No hydronephrosis. Normal color flow. Left kidney normal size and echotexture, 9.0 cm length. No hydronephrosis. Normal color flow. Impression: 1. Normal kidneys This document has been electronically signed by: Murali Alcala MD on 02/21/2025 18:57:18
== END 2025-02-21 13:01 | disposition home or self-care (01) ==
LOC: HO.HMGCX 13:00
PROVIDERS: PCP Internal Medicine; Visit Provider Internal Medicine
DX: N28.1 Cyst of kidney, acquired (principal)
CPT/HCPCS: 76775

== ENCOUNTER → 2025-02-21 13:05 | Outpatient (BNV) | payer OTHER, SELFPAY | PROVIDERS: PCP Internal Medicine; Visit Provider Radiology Diagnostic Radiology | DX: N28.1 Cyst of kidney, acquired (principal) | CPT/HCPCS: 76775 ==

== ENCOUNTER 2025-03-06 12:46 | Outpatient (AMB) | payer OTHER, SELFPAY ==
[2025-03-06 12:47] VITALS: BP 118/62; PULSE 96; O2SAT 95; BMI 33.0
--- NOTE | 2025-03-06 12:47 | A.OFFVIS_ITS ---
Vital Signs 03/06/25 12:47 Height 5 ft Weight 169 lb 1.513 oz BMI 33.0 BP 118/62 Blood Pressure Location Lt brachial Position Sitting Pulse 96 Pulse Source Pulse Oximeter Pulse Oximetry (%) 95 Oxygen Delivery Method Room Air Intake Visit Reasons: joint pain Intake Note: Patient is a new patient internally referred by Dr. Whiting for polyarthralgia. She states she has pain in all her joints for years. Sometimes if pain is bad, she will take Ibuprofen for pain. Scanning Supervisor Required: No Accompanied by: Self / Same As Patient Allergies acetaminophen (From PERCOCET) Allergy (Intermediate, Verified 03/06/25 12:53) VOMITING oxycodone (From PERCOCET) Allergy (Intermediate, Verified 03/06/25 12:53) VOMITING HPI Comments Details: 59-year-old female with a past medical history of hyperlipidemia, anxiety, diabe kathrine- presenting to me as a new patient for evaluation of joint Pain. she also has a history of surgery in right shoulder Patient states joint pain is in hands shoulders, neck knees and ankles for 10 years. She reports diffuse body pain. She had surgery in the lower back 3 years ago,lumbar fusion She feels stiff in the morning 5 minutes until she moves around She said sometimes the joints are red hot swollen, in the fingers and ankles 3 weeks ago she had severe pain in the left shoulder and it was sudden and went to the ED. there her xray was done which NO ACUTE FINDINGS, THERE IS CALCIFIC TENDINOSIS OF THE SUPRASPINATUS SUSPECTED She has taken Tylenol and used lidocaine patch which helped little bit, she also takes ibuprofen but only as needed. She takes 800mg once a day which helps the pain. review of systems patient denies photosensitivity Raynaud's dry eyes dry mouth bloody diarrhea bloody urine weight loss fever no miscarriage no blood clot she endorses painful oral ulcer but does not remember the last time it happened she also has hair fall but no scarring alopecia She states for the past 2 months ever since starting metformin she will have a mild headache that lasts for 1 hour after taking Tylenol. She denies any visual changes or jaw pain while chewing. She has had steroid injections done in the past by orthopedics and rheumatogy. She has seen Dr Day in the past and was told she has osteoarthritis and fibromyalgia On labs, patient had a negative RF negative CCP negative LV negative subsets last CRP in August 19.80 amd ESR 18 Patient's DEXA scan on 01/2025 showed osteopenia, with a FRAX score of MOP 8% hip fracture 0.3% PHYSICAL EXAM General: Comfortable CVS: RRR Respiratory: clear to auscultation bilaterally. Good respiratory effort Skin: No lesions seen MSK: Patient is able to make a fist bilaterally. No active synovitis noted in any of the fingers. Nontender MCPs PIPs. Patient has full range of motion in both shoulders bilaterally. Pain on palpation is elicited in the left shoulder. Patient has limited range of motion in the hips. Crepitus noted on flexion- extension of the knees. [facility] Medical History (Updated 03/06/25 @ 13:28 by Hina Prasad MD) Impaired glucose tolerance Diverticulitis Polyarthralgia Essential hypertension RACHELLE (generalized anxiety disorder) Fibromyalgia High cholesterol Arthritis Surgical History History of total abdominal hysterectomy History of hemicolectomy Hx laparoscopic cholecystectomy History of carpal tunnel release of both wrists H/O rotator cuff surgery Hx of lumbosacral spine surgery H/O cervical spine surgery Family History Mother Diabetes Hypertension Osteoporosis Father Dementia Emphysema lung Family/Other Mental health disorder Social History Housing: Apartment Alcohol intake: never Patient Tobacco Use Status: Never used Tobacco e-Cigarette/Vaping Use: Never Used Second Hand Smoke Exposure: No service: No Current occupational status: disabled Cognitive needs: Yes Hearing needs: No Vision needs: Yes Physical Exam Vital Signs: Last Vital Signs Pulse 96 03/06/25 12:47 BP 118/62 03/06/25 12:47 Pulse Ox 95 03/06/25 12:47 Oxygen Delivery Method Room Air 03/06/25 12:47 BMI result Body Mass Index 33.0 Assessment & Plan Assessment & Plan (1) Fibromyalgia: Code(s): M79.7 - Fibromyalgia Category: Medical (2) Polyarthralgia: Code(s): M25.50 - Pain in unspecified joint Category: Medical (3) Left shoulder pain: Code(s): M25.512 - Pain in left shoulder Category: Medical Qualifiers: Chronicity: acute Qualified Code(s): M25.512 - Pain in left shoulder Plan 59-year-old female with a past medical history of hyperlipidemia, anxiety, diabetes- presenting to me as a new patient for evaluation of joint Pain. Based on her history, physical exam and blood work most likely her joint pain is related to osteoarthritis with superimposed fibromyalgia. She has good range of motion of the left shoulder, her left shoulder x-ray shows calcific tendinitis. For this I will refer this patient to PT for evaluation and treatment of her left shoulder pain. Patient is not interested in steroid injections in the left shoulder today. She has a mildly elevated CRP with negative ESR, she has negative autoimmune workup. I will order x-rays of the hands bilaterally to look for any stigmata of inflammatory arthritis, however this is very less likely. Discussed management of fibromyalgia with patient. Is a noninflammatory, non- autoimmune central afferent processing disorder leading to a diffuse pain syndrome. I suggested that patient try to address her underlying psychiatric issues, anxiety/depression. Consider a referral for a sleep study by her PCP to rule out ELDER. Try to follow sleep hygiene practices. Patient would benefit from increased physical activity, either through formal physical therapy or by joining a gym. Advised patient that she should start activity slowly and increase as tolerated. Consider low-impact exercises such as walking, swimming, aqua therapy stretching, yoga. Fibromyalgia reading material handed over to the patient. Follow up in 1 year, sooner if needed Orders: Orders XR Hand Augusto 2V Today M25.50 - Pain in unspecified joint PT Evaluation and Treatment Today M25.512 - Pain in left shoulder Coding Level of Care Code New Pt Level 4 (57850) Diagnoses Fibromyalgia M79.7 Polyarthralgia M25.50 Acute pain of left shoulder M25.512 Chronicity: acute Time Spent (min) 60
--- OUTSIDE RECORDS SUMMARY | 2025-03-06 16:53 | XMS_ITS | Clinical Summary ---
Author Organization [address] [facility] g Address [address] [place] [address] Phone Care Team Providers Care Billing And Accounting Staff Assistant Name Role Phone Unavailable Primary Care [...] 02/13/2019 Insomnia 02/13/2019 Diabetes mellitus type 2, uncomplicated 08/05/19 19 Assessment & Plan (03/07/2024 12:52 PM EST): [...] 6 Depression 04/01/2015 Overview (05/25/2023): Follows with [facility] Fibromyalgia 04/01/2015 Overview (05/25/2023): Follows with [...] History Surgery Date Site/Laterality Comments CHOLECYSTECTOMY PROCEDURE: HI LAPAROSCOPY SURG CHOLECYSTECTOMY OTHER SURGICAL HISTORY PROCEDURE: DECOMPRESS DISC RF LUMBAR; COMMENT: 2014 ROTATOR CUFF REPAIR Right PROCEDURE: HISTORICAL ROTATOR CUFF REPAIR CARPAL TUNNEL RELEASE Bilateral PROCEDURE: HI NEUROPLASTY &/TRANSPOS MEDIAN NRV CARPAL TUNNE OTHER SURGICAL HISTORY PROCEDURE: HI ARTHRODESIS POSTERIOR INTERBODY 1 NTRSPC LUMBAR; COMMENT: [...] for your loved ones. For example, child welfare manager or elderly care for an older adult? [...] is recommended in 1 year. Mammo Location: [facility], [address] [place] [address], [id number], . -------- FINAL REPORT -------- Dictated By: Shae Donnelly Dictated Date: 08/20/2024 14:49 ET Assigned Physician: Shae Donnelly Reviewed and Electronically Signed By: Shae Donnelly Signed Date: 08/20/2024 15:02 ET Workstation ID: [id number] Transcribed By: Self Edit Transcribed Date: 08/20/2024 [...] is recommended in 1 year. Mammo Location: [facility], [address] [place] [address], [id number], . -------- FINAL REPORT -------- Dictated By: Shae Donnelly Dictated Date: 08/20/2024 14:49 ET Assigned Physician: Shae Donnelly Reviewed and Electronically Signed By: Shae Donnelly Signed Date: 08/20/2024 15:02 ET Workstation ID: [id number] Transcribed By: Self Edit Transcribed Date: 08/20/2024 14:53 ET Result [facility] Constanza Reddy MD IMG BI PROCEDURES Final Result * Hemoglobin A1c (05/20/2023) Pathologist [facility] [place] Hemoglobin A1C 6.4 % Blood Venous blood specimen / Unknown Result [facility] Provider LAB BLOOD ORDERABLES Cony l Result * Urine Albumin Creatinine Ratio (08/05/2022) Pathologist [facility] Urine Albumin Creatinine Ratio <12.1 Result [facility] Provider HEALTH MAINTENANCE Final Result * Lipid panel (08/05/2022) Pathologist [facility] [place] LDL/HDL Ratio 4 Triglycerides 256 mg/dL Cholesterol 145 mg/dL HDL 40 mg/dL LDL Cholesterol 54 mg/dL Blood Venous blood specimen / Unknown Result [facility] Provider LAB BLOOD ORDERABLES Cony l Result * Colonoscopy (12/19/2017) Pathologist [facility] Colonoscopy patient reported Anatomical Region Laterality Modality Other Result [facility] Provider HEALTH MAINTENANCE Final Result from Last 3 Months or Most Recently Relevant to Health Maintenance Insurance [employer] Member Subscriber Plan / Payer (Ef fective 2012-Present) Name:CHRISTINA LOU Relation to Subscriber:Self Name:Christina Lou Payer ID:[id number] Group ID:[id number] Type:Not on file Address: [address] [address]
--- OUTSIDE RECORDS SUMMARY | 2025-03-06 16:53 | XMS_ITS | Clinical Summary ---
Author Organization [facility] Prior to 08/18/[address] [place] [address] Care Team Providers Care Line Construction Supervisor Name Role Phone Lesli Gomez MD Primary Care Provider [phone] Social History Tobacco Use Types Packs/Day Years [...] o f 2) 2014 COVID-19 Vaccine (3 2024-2 6 season) 2024 05/19/2020, 04/28/2020 Influenza [...] age to complete this topic Care Teams Line Construction Supervisor Relationship Specialty Start Date End Date Lesli Gomez MD PCP - General Internal Medicine 09/05/19
== END 2025-03-06 13:24 | disposition home or self-care (01) ==
LOC: HO.RHES 12:46
PROVIDERS: PCP Internal Medicine; Visit Provider Student in an Organized Health Care Education/Training Program
DX: M79.7 Fibromyalgia (principal); M25.50 Pain in unspecified joint; M25.512 Pain in left shoulder
CPT/HCPCS: 99204

== ENCOUNTER → 2025-03-06 12:46 | Outpatient (BNVA) | payer OTHER, SELFPAY | PROVIDERS: PCP Internal Medicine; Visit Provider Student in an Organized Health Care Education/Training Program | DX: M79.7 Fibromyalgia (principal); M25.512 Pain in left shoulder; M75.32 Calcific tendinitis of left shoulder; M25.50 Pain in unspecified joint; R79.82 Elevated C-reactive protein (CRP) | CPT/HCPCS: 99202 ==